=== PATIENT | female | born 2000 | race Caucasian/White ===

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

== ENCOUNTER 2020-02-28 21:10 | Emergency (ER) | payer SELFPAY ==
--- OUTSIDE RECORDS SUMMARY | 2020-02-28 21:13 | XMS REPORT | Continuity of Care Document ---
:2000 Author Organization [facility] t Address [address] [place] [address] Dr. Izaguirre [address] [place] [id number] Care Team Providers Name Role Phone Unavailable Unavailable Unavailable Problems This patient has no known problems. Allergies, Adverse Reactions, Alerts This patient has no known allergies or adverse reactions. Medications This patient has no known medications. Procedures This patient has no known procedures. Results This patient has no known results.
[2020-02-28] MEDS ORDERED: ACETAMINOPHEN 500 MG TAB ONE (21:44)
[2020-02-28 22:23] LABS: Absolute Lymphocytes (CBC) 1.8 K/uL (0.7-4.9); Basophils % 0.4 % (0-1.3); Hematocrit 38.3 % (36.0-45.0); Lymphocytes % 10.4 % (15.3-44.8); MPV 8.2 fL (7.6-11.3); RBC Red Blood Cell Count 4.67 M/uL (3.86-4.86)
[2020-02-28 22:36] LABS: Protime INR 1.27
[2020-02-28] MEDS ORDERED: NA CHLORIDE 0.9% 2,000 ML ONE (22:42)
[2020-02-28 22:49] LABS: ALT/SGPT 18 U/L (12-78); AST/SGOT 21 U/L (15-37); Albumin 2.6 g/dL (3.4-5.0); Alkaline Phosphatase 142 U/L (45-117); BUN Blood Urea Nitrogen 9 mg/dL (7-18); Bicarbonate 31 mmol/L (21-32); Bilirubin Direct 0.1 mg/dL (0-0.2); Bilirubin Total 0.4 mg/dL (0.2-1.0); Ferritin 146.9 ng/mL (8-388); Glucose Level 79 mg/dL (74-106); Lipase 44 U/L (73-393); Potassium 3.7 mmol/L (3.5-5.1); Protein, Total 8.7 g/dL (6.4-8.2); Sodium Level 134 mmol/L (136-145); Troponin (Emerg Dept Use Only) < 0.02 ng/mL (0.0-0.045)
[2020-02-28] MEDS ORDERED: dexAMETHasone 10 MG/ML VIAL ONE (23:12)
[2020-02-28] MEDS ORDERED: NA CHLORIDE 0.9% 250 ML ONE (23:12)
[2020-02-28] MEDS ORDERED: AZITHROMYCIN 500 MG INJ IVPB ONE (23:12)
--- NOTE | 2020-02-28 23:45 | EDPHYS ---
Physician Documentation [facility] Name: Taylor Rick Age: 19 yrs Sex: Female : 2000 Arrival Date: 02/28/2020 Time: 21:13 Bed 15 Private MD: ED Physician Dwight Dela Cruz HPI: 02/27 23:55 This 19 yrs old Female presents to ER via Ambulatory with complaints of tw4 Cough, Breathing Difficulty. 23:55 The patient or guardian reports cough. Onset: The symptoms/episode began/occurred tw4 today. Severity of symptoms: At their worst the symptoms were moderate, in the emergency department the symptoms are unchanged. Modifying factors: The symptoms are alleviated by nothing, the symptoms are aggravated by nothing. The patient has not experienced similar symptoms in the past. 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 - Social history:: Smoking status: . ROS: 23:55 Constitutional: Negative for fever, chills, and weight loss, Eyes: Negative for injury, tw4 pain, redness, and discharge, Cardiovascular: Negative for chest pain, palpitations, and edema, Abdomen/GI: Negative for abdominal pain, nausea, vomiting, diarrhea, and constipation, Back: Negative for injury and pain, MS/Extremity: Negative for injury and deformity, Skin: Negative for injury, rash, and discoloration, Neuro: Negative for headache, weakness, numbness, tingling, and seizure. 23:55 Respiratory: Positive for cough, shortness of breath, wheezing. Exam: 23:55 Constitutional: This is a well developed, well nourished patient who is awake, alert, tw4 and in no acute distress. Head/Face: Normocephalic, atraumatic. Chest/axilla: Normal chest wall appearance and motion. Nontender with no deformity. No lesions are appreciated. Cardiovascular: Regular rate and rhythm with a normal S1 and S2. No gallops, murmurs, or rubs. Normal PMI, no JVD. No pulse deficits. Respiratory: Lungs have equal breath sounds bilaterally, clear to auscultation and percussion. No rales, rhonchi or wheezes noted. No increased work of breathing, no retractions or nasal flaring. Abdomen/GI: Soft, non-tender, with normal bowel sounds. No distension or tympany. No guarding or rebound. No evidence of tenderness throughout. Back: No spinal tenderness. No costovertebral tenderness. Full range of motion. MS/ Extremity: Pulses equal, no cyanosis. Neurovascular intact. Full, normal range of motion. Neuro: Awake and alert, GCS 15, oriented to person, place, time, and situation. Cranial nerves II-XII grossly intact. Motor strength 5/5 in all extremities. Sensory grossly intact. Cerebellar exam normal. Normal gait. Vital Signs: 21:22 BP 113 / 89; Pulse 131; Resp 26; Temp 102.2; Pulse Ox 98% on R/A; Weight 52.16 kg; ls4 Height 5 ft. 7 in. (170.18 cm) (M); Pain 5/10; 22:30 BP 107 / 72; Pulse 131; Resp 24; Temp 101.8; Pulse Ox 98% on R/A; Pain 5/10; ls4 23:30 BP 100 / 74; Pulse 98; Resp 16; Temp 98.8; Pulse Ox 99% on R/A; Pain 3/10; ls4 02/28 00:00 BP 117 / 76; Pulse 105; Resp 18; Pulse Ox 100% ; vc 01:00 BP 112 / 74; Pulse 110; Resp 18; Pulse Ox 99% on R/A; vc 02/27 21:22 Body Mass Index 18.01 (52.16 kg, 170.18 cm) ls4 MDM: 02/27 21:33 Patient medically screened. tw4 23:57 Differential Diagnosis: Obstructed Airway Bronchitis Influenza. Data reviewed: vital tw4 signs, nurses notes. Data reviewed: lab test result(s), CBC, electrolytes, hepatic panel, radiologic studies, plain films. Data interpreted: Pulse oximetry: Interpretation:. Test interpretation: by ED physician or midlevel provider: plain radiologic studies. Counseling: I had a detailed discussion with the patient and/or guardian regarding: the historical points, exam findings, and any diagnostic results supporting the discharge/admit diagnosis, lab results, radiology results. Medication response: acetaminophen administration has normalized the patient's temperature. Response to treatment: the patient's symptoms have markedly improved after treatment, and as a result, I will discharge patient. Special discussion: I discussed with the patient/guardian in detail that at this point there is no indication for admission to the hospital. It is understood, however, that if the symptoms persist or worsen the patient needs to return immediately for re-evaluation. ED course: CXR reveals bilateral infiltrates suspicious for coronavirus pneumonia. Pt received antibiotics and steroids. Pt told to return to the ED if symptoms worsen. 02/27 21:32 Order name: Flu 02/27 21:32 Order name: Strep 02/27 22:03 Order name: Blood Culture Adult (2) 02/27 22:03 Order name: BMP 02/27 22:03 Order name: C-Reactive Protein 02/27 22:03 Order name: CBC with Diff; Complete Time: 22:57 02/27 22:03 Order name: COVID-19 02/27 22:03 Order name: Ferritin; Complete Time: 22:57 02/27 22:03 Order name: Flu 02/27 22:03 Order name: Lactate; Complete Time: 22:57 02/27 22:03 Order name: LFT's; Complete Time: 22:57 02/27 22:03 Order name: Lipase; Complete Time: 22:57 02/27 22:03 Order name: Procalcitonin; Complete Time: 22:57 02/27 21:32 Order name: Droplet/Contact Precautions; Complete Time: 22:18 02/27 21:32 Order name: CXR XRAY 02/27 22:03 Order name: PT-INR; Complete Time: 22:57 02/27 22:03 Order name: Ptt, Activated; Complete Time: 22:57 02/27 22:03 Order name: Troponin (emerg Dept Use Only); Complete Time: 22:57 02/27 22:03 Order name: EKG; Complete Time: 22:05 02/27 22:04 Order name: Blood Culture EDAL 02/27 22:04 Order name: Basic Metabolic Panel; Complete Time: 22:57 EDAL 02/27 22:04 Order name: C-Reactive Protein; Complete Time: 22:57 EDAL 02/27 21:32 Order name: [facility] [phone]/ tw 02/27 21:32 Order name: O2 Per Protocol; Complete Time: 22:18 tw4 02/27 22:03 Order name: EKG - Nurse/Tech; Complete Time: 22:33 tw4 02/27 22:03 Order name: IV Start; Complete Time: 22:18 tw4 02/27 22:03 Order name: Labs collected and sent; Complete Time: 22:18 tw4 02/27 22:03 Order name: [facility] [phone]/ ; Complete Time: 22:18 tw4 02/27 22:03 Order name: O2 Per Protocol; Complete Time: 22:18 tw4 02/27 22:03 Order name: O2 Sat Monitoring; Complete Time: 22:18 tw4 EC/16 01:10 Rate is 119 beats/min. Rhythm is regular, Sinus tachycardia. QRS Murray is Normal. MT tw4 interval is normal. QRS interval is normal. QT interval is normal. No Q waves. T waves are Normal. No ST changes noted. Clinical impression: Sinus tachycardia. Interpreted by me. Reviewed by me. Administered Medications: 02/27 21:45 Drug: Tylenol 1000 mg Route: PO; ls4 22:25 Follow up: Response: No adverse reaction; Pain is decreased ls4 22:32 Drug: NS 0.9% 1000 ml Route: IV; Rate: 1 bolus; Site: right antecubital; ls4 23:05 Drug: Decadron - Dexamethasone 10 mg Route: IVP; Site: right antecubital; ls4 02/28 00:00 Follow up: Response: No adverse reaction vc 02/27 23:05 Drug: AZITHromycin 500 mg Route: IVPB; Infused Over: 1 hrs; Site: right antecubital; ls4 Disposition: 02/28/20 23:45 Discharged to Home. Impression: Pneumonia, unspecified organism, Fever, unspecified. - Condition is Stable. - Discharge Instructions: Fever, Adult, Community-Acquired Pneumonia, Adult. - Prescriptions for Zithromax Z- Adolph 250 mg Oral Tablet - take 1 tablet by ORAL route as directed for 5 days Day 1 - take two (2) tablets one time. Day 2, 3, 4 , 5 take one (1) tablet once daily.; 6 tablet. Medrol (Adolph) 4 mg Oral Tablets, Dose Pack - take 1 tablet by ORAL route as directed - follow package instructions; 1 packet. - Medication Reconciliation Form, Thank You Letter, Antibiotic Education, Prescription Opioid Use form. - Follow up: Private Physician; When: Upon discharge from the Emergency Department; Reason: Recheck today's complaints, Continuance of care, Re-evaluation by your physician. - Problem is new. - Symptoms have improved. Signatures: Dispatcher [employer] EDDwight Walter MD MD 4 Vianney Turner RN RN ls4 Ada Churchill RN RN vc Corrections: (The following items were deleted from the chart) 22:19 21:32 Labs collected and sent ordered. 4 ls4 02/28 01:42 02/27 23:45 02/28/2020 23:45 Discharged to Home. Impression: Pneumonia, unspecified vc organism; Fever, unspecified. Condition is Stable. Forms are Medication Reconciliation Form, Thank You Letter, Antibiotic Education, Prescription Opioid Use. Follow up: Private Physician; When: Upon discharge from the Emergency Department; Reason: Recheck today's complaints, Continuance of care, Re-evaluation by your physician. Problem is new. Symptoms have improved. 4
--- NOTE | 2020-02-28 23:45 | ER ---
Nurse's Notes [facility] Name: Taylor Rick Age: 19 yrs Sex: Female : 2000 Arrival Date: 02/28/2020 Time: 21:13 Bed 15 Private MD: Diagnosis: Pneumonia, unspecified organism;Fever, unspecified Presentation: 02/27 21:22 Chief complaint: Patient states: coughing and sick for at least a month. started having ls4 fevers 3 days ago. I wake up in sweats. Coronavirus screen: Client denies travel out of the [place] in the last 14 days. Client presents with at least one sign or symptom that may indicate coronavirus-19. Standard/surgical mask placed on the client. Provider contacted for isolation considerations. Ebola Screen: No symptoms or risks identified at this time. 21:22 Initial Sepsis Screen: Does the patient meet any 2 criteria? RR > 20 per min. Temp ls4 <36.0*C (96.8*F)) or > 38.3*C (100.9*F). HR > 90 bpm. Yes Does the patient have a suspected source of infection? Yes: Productive cough/pneumonia Dysuria/Frequency/Urgency/UTI Skin breakdown/wound If YES to both, name of provider notified: Dwight Dela Cruz MD Risk Assessment: Do you want to hurt yourself or someone else? Patient reports no desire to harm self or others. Onset of symptoms is unknown. Care prior to arrival: None. Activity prior to arrival: None. 21:22 Acuity: GABRIELLA 2 ls4 22:01 Method Of Arrival: Ambulatory ls4 Triage Assessment: 21:20 General: Appears distressed, uncomfortable, ill, slender, unkempt, malnourished, ls4 Behavior is cooperative. 21:20 Pain: Complains of pain in right mid back Pain currently is 5 out of 10 on a pain ls4 scale. Quality of pain is described as aching, Pain began gradually, Is intermittent, episodic, Aggravated by coughing. Respiratory: Reports shortness of breath at rest on exertion since one month cough that is non-productive, dry, hacking, persistent since one month Airway is patent Respiratory effort is even, labored, Respiratory pattern is tachypnea Onset: The symptoms/episode began/occurred one month , the patient has severe shortness of breath. GI: Reports nausea. Derm: Skin is clammy, Skin is pale, Skin temperature is warm track rodriguez on antecubital veins Decubitus. Musculoskeletal: No deficits noted. No signs and/or symptoms reported regarding the musculoskeletal system. 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 - Social history:: Smoking status: . Screenin:20 Abuse screen: Denies threats or abuse. Denies injuries from another. ls4 21:20 Nutritional screening: No deficits noted. Tuberculosis screening: No symptoms or risk ls4 factors identified. Fall Risk None identified. Assessment: 22:27 Reassessment: No changes from previously documented assessment. Patient and/or family ls4 updated on plan of care and expected duration. Pain level reassessed. Patient is alert, oriented x 3, equal unlabored respirations, skin warm/dry/pink. Cardiovascular: Denies chest pain, Rhythm is sinus tachycardia Chest pain is denied. 02/28 00:10 Reassessment: Patient appears in no apparent distress at this time. Patient and/or vc family updated on plan of care and expected duration. Pain level reassessed. Assumed care from Vianney Turner RN. 00:10 General: Appears uncomfortable, ill, slender, Behavior is calm, cooperative, vc appropriate for age. Neuro: Level of Consciousness is obeys commands, lethargic, Oriented to person, place, time, situation, Appropriate for age. Respiratory: Reports cough that is productive, Airway is patent Respiratory effort is even, unlabored, Respiratory pattern is symmetrical, tachypnea. Respiratory: Reports shortness of breath. GI: No signs and/or symptoms were reported involving the gastrointestinal system. : No signs and/or symptoms were reported regarding the genitourinary system. Derm: No deficits noted. Musculoskeletal: No signs and/or symptoms reported regarding the musculoskeletal system. 00:10 Reassessment: Discharge pending fluids infusing. vc 01:00 Reassessment: Patient appears in no apparent distress at this time. Patient and/or vc family updated on plan of care and expected duration. Pain level reassessed. Patient is alert, oriented x 3, equal unlabored respirations, skin warm/dry/pink. Vital Signs: 02/27 21:22 BP 113 / 89; Pulse 131; Resp 26; Temp 102.2; Pulse Ox 98% on R/A; Weight 52.16 kg; ls4 Height 5 ft. 7 in. (170.18 cm) (M); Pain 5/10; 22:30 BP 107 / 72; Pulse 131; Resp 24; Temp 101.8; Pulse Ox 98% on R/A; Pain 5/10; ls4 23:30 BP 100 / 74; Pulse 98; Resp 16; Temp 98.8; Pulse Ox 99% on R/A; Pain 3/10; ls4 02/28 00:00 BP 117 / 76; Pulse 105; Resp 18; Pulse Ox 100% ; vc 01:00 BP 112 / 74; Pulse 110; Resp 18; Pulse Ox 99% on R/A; vc 02/27 21:22 Body Mass Index 18.01 (52.16 kg, 170.18 cm) ls4 ED Course: 02/27 21:13 Patient arrived in ED. cl3 21:19 Arm band placed on. ls4 21:19 EKG completed in triage. Results shown to MD. ls4 21:24 Vianney Turner, RN is Primary Nurse. ls4 21:33 Dwight Dela Cruz MD is Attending Physician. tw4 21:44 CXR XRAY In Process Unspecified. EDMS 21:45 No provider procedures requiring assistance completed. Inserted saline lock: 20 gauge ls4 in right antecubital area, using aseptic technique. Blood collected. 21:59 Initial lab(s) drawn, by me, sent to lab. First set of blood cultures drawn by me, ls4 Second set of blood cultures drawn by me, Urine collected: clean catch specimen, EKG done, by ED staff, reviewed by Dwight Dela Cruz MD. Patient maintains SpO2 saturation greater than 95% on room air. 22:05 Triage completed. ls4 22:18 Blood Culture Adult (2) Sent. ls4 22:18 BMP Sent. ls4 22:29 Patient has correct armband on for positive identification. Bed in low position. Call ls4 light in reach. Side rails up X 1. 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 Pulse ox on. NIBP on. Verbal reassurance given. 23:44 C-Reactive Protein Sent. ls4 02/28 01:30 IV discontinued, intact, bleeding controlled, No redness/swelling at site. Pressure vc dressing applied. Administered Medications: 02/27 21:45 Drug: Tylenol 1000 mg Route: PO; ls4 22:25 Follow up: Response: No adverse reaction; Pain is decreased ls4 22:32 Drug: NS 0.9% 1000 ml Route: IV; Rate: 1 bolus; Site: right antecubital; ls4 23:05 Drug: Decadron - Dexamethasone 10 mg Route: IVP; Site: right antecubital; ls4 02/28 00:00 Follow up: Response: No adverse reaction vc 02/27 23:05 Drug: AZITHromycin 500 mg Route: IVPB; Infused Over: 1 hrs; Site: right antecubital; ls4 Outcome: 23:45 Discharge ordered by . allie 02/28 01:30 Patient left the ED. vc 01:30 Discharged to home ambulatory. vc 01:30 Condition: stable 01:30 Discharge instructions given to patient, Instructed on discharge instructions, follow up and referral plans. medication usage, Demonstrated understanding of instructions, follow-up care, medications, Prescriptions given X 3. Signatures: Dispatcher [employer] Dwight Pillai MD MD 4 Vianney Turner RN RN 4 Sandy Jeronimo 3 Ada Churchill RN RN vc Corrections: (The following items were deleted from the chart) 04:23 02:00 Reassessment: Patient appears in no apparent distress at this time. Patient vc and/or family updated on plan of care and expected duration. Pain level reassessed. vc 04:25 01:42 Patient left the ED. vc vc
[2020-02-29] MEDS ORDERED: CLINDAMYCIN IV 150 MG/ML (4 mL) VIAL ONE (00:09)
[2020-02-29] MEDS ORDERED: HYDROCODONE/APAP 7.5/325 MG TAB ONE (00:09)
[2020-02-29 02:08] VITALS: BP 100/74; TEMP 98.8; O2SAT 99
--- NOTE | 2020-02-29 11:26 | RAD REPORT ---
EXAM DESCRIPTION: Aurelia Single View02/28/2020 9:44 pm CLINICAL HISTORY: Chest pain COMPARISON: October 2019 FINDINGS: 5 centimeter left upper lobe consolidation. Mild to moderate additional bilateral pulmonary opacities Heart is normal size IMPRESSION: Right left upper lobe consolidation probably pneumonia Additional mild to moderate bilateral patchy lung opacities probably pneumonia. This should be follow ed until it has cleared to help exclude a neoplastic process
--- NOTE | 2020-02-29 15:35 | EKG ---
Test Date: 2020-02-28 Test Time: 22:29:07 Manufacturing Coordinator: TLT MEASUREMENT RESULTS: Intervals: Rate: 0 CA: QRSD: 0 QT: 0 QTc: 0 [place]: P: CA: QRS: 0 T: 0 INTERPRETIVE STATEMENTS: No QRS complexes found, no ECG analysis possible Compared to ECG 03/22/2019 16:05:34 Sinus rhythm no longer present Electronically Signed On 02-29-20 15:34:27 CDT by Arnaud Lafleur
== END 2020-02-29 01:42 | disposition home or self-care (01) ==
LOC: ER 21:10
DX: J18.9 Pneumonia, unspecified organism (principal); J45.909 Unspecified asthma, uncomplicated; F31.9 Bipolar disorder, unspecified
CPT/HCPCS: 36415; 71045; 80048; 80076; 82728; 83605; 83690; 84145; 84484; 85025; 85610; 85730; 86140; 87040; 87081; 87804; 93005; 96374; 96375; 99285; J0456; J1100; J7030; J7050; U0002

== ENCOUNTER 2020-03-25 12:15 | Emergency (ER) | payer OTHER, SELFPAY ==
--- OUTSIDE RECORDS SUMMARY | 2020-03-25 12:37 | XMS REPORT | Continuity of Care Document ---
:2000 Author Organization [facility] t Address [address] [place] [address] Dr. Izaguirre [address] [place] [id number] Care Team Providers Name Role Phone Unavailable Unavailable Unavailable Problems This patient has no known problems. Allergies, Adverse Reactions, Alerts This patient has no known allergies or adverse reactions. Medications This patient has no known medications. Procedures This patient has no known procedures. Results This patient has no known results.
[2020-03-25] MEDS ORDERED: ALBUTEROL 2.5 MG/3 ML NEB SOL ONE ×2 (12:54→15:46)
[2020-03-25] MEDS ORDERED: IPRATROPIUM BROM 0.5MG/2.5ML ONE (12:54)
[2020-03-25 12:56] LABS: Absolute Lymphocytes (CBC) 1.4 K/uL (0.7-4.9); Basophils % 0.6 % (0-1.3); Hematocrit 36.5 % (36.0-45.0); MPV 8.1 fL (7.6-11.3); RBC Red Blood Cell Count 4.31 M/uL (3.86-4.86)
[2020-03-25 12:59] LABS: Protime INR 0.96
[2020-03-25] MEDS ORDERED: Magnesium Sulfate 2gm IVPB 2 G/50 ML BAG IV ONE (13:07)
[2020-03-25] MEDS ORDERED: METHYLPREDNISOLONE 125 MG INJ ONE (13:07)
[2020-03-25 13:16] LABS: ALT/SGPT 17 U/L (12-78); AST/SGOT 11 U/L (15-37); Albumin 3.4 g/dL (3.4-5.0); Alkaline Phosphatase 99 U/L (45-117); BUN Blood Urea Nitrogen 12 mg/dL (7-18); Bicarbonate 28 mmol/L (21-32); Bilirubin Direct 0.2 mg/dL (0-0.2); Bilirubin Total 0.6 mg/dL (0.2-1.0); Glucose Level 107 mg/dL (74-106); Magnesium 1.9 mg/dL (1.8-2.4); NT PRO-BNP 261 pg/mL (<125); Potassium 3.8 mmol/L (3.5-5.1); Protein, Total 7.9 g/dL (6.4-8.2); Sodium Level 140 mmol/L (136-145); Troponin (Emerg Dept Use Only) < 0.02 ng/mL (0.0-0.045)
[2020-03-25 13:37] LABS: Blood Morphology Comment NOT SEEN (NOT SEEN); Platelet Estimate ADEQ; White Blood Cell Scan OK (OK)
--- NOTE | 2020-03-25 15:40 | RAD REPORT ---
EXAM DESCRIPTION: RAD - Chest Single View - 03/25/2020 3:23 pm CLINICAL HISTORY: DYSPNEA COMPARISON: Single-view chest February 27 TECHNIQUE: AP portable chest image was obtained 03/25/2020 3:23 pm . FINDINGS: Diffusely prominent interstitial pattern is present. Remnant focal opacification is presen t in the left upper lobe. Little remaining infiltrate or postinflammatory change noted. No cavitation . No new infiltrate. Heart and vasculature are normal. No measurable pleural effusion and no pneumoth orax. No acute bony abnormality seen. No acute aortic findings suspected. IMPRESSION: Very little infiltrate remains from the left upper lobe pneumonia seen on the February 27 study. Patient has diffusely prominent interstitial markings not clearly different from comparison.
[2020-03-25] MEDS ORDERED: Ringers Lactate 1,000 ML IV ONE (15:46)
--- NOTE | 2020-03-25 16:57 | EDPHYS ---
Physician Documentation [facility] Name: Taylor Rick Age: 19 yrs Sex: Female : 2000 Arrival Date: 03/25/2020 Time: 12:17 Bed 28 Private MD: ED Physician Angel Beck HPI: 03/25 13:33 This 19 yrs old Female presents to ER via Ambulatory with complaints of jr8 Asthma Exacerbation. 13:33 The patient presents to the emergency department with wheezing, Current therapy: jr8 albuterol inhaler, albuterol nebs. Onset: The symptoms/episode began/occurred acutely, yesterday. Modifying factors: The symptoms are alleviated by nothing, the symptoms are aggravated by exertion. Associated signs and symptoms: Pertinent negatives: chest pain, fever. Severity of symptoms: At their worst the symptoms were moderate in the emergency department the symptoms are unchanged. The patient has experienced similar episodes in the past, a few times. The patient has not recently seen a physician. Stated that she was diagnosed with pneumonia last month. Did not take all her Abx. Has been seen by health department as well to r/o TB. Stated that COVID and TB has been negative so far. Started with Asthma exacerbation that is not being relieved by her meds. Is also out of some of them as well . 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 - Social history:: Smoking status: Patient/guardian denies using tobacco, Stopped _ months ago 5. ROS: 13:33 Eyes: Negative for injury, pain, redness, and discharge, ENT: Negative for injury, jr8 pain, and discharge, Neck: Negative for injury, pain, and swelling, Cardiovascular: Negative for chest pain, palpitations, and edema, Abdomen/GI: Negative for abdominal pain, nausea, vomiting, diarrhea, and constipation, Back: Negative for injury and pain, MS/Extremity: Negative for injury and deformity, Skin: Negative for injury, rash, and discoloration, Neuro: Negative for headache, weakness, numbness, tingling, and seizure. 13:33 Respiratory: Positive for cough, dyspnea on exertion, shortness of breath, wheezing. Exam: 13:33 Eyes: Pupils equal round and reactive to light, extra-ocular motions intact. Lids and jr8 lashes normal. Conjunctiva and sclera are non-icteric and not injected. Cornea within normal limits. Periorbital areas with no swelling, redness, or edema. ENT: Nares patent. No nasal discharge, no septal abnormalities noted. Tympanic membranes are normal and external auditory canals are clear. Oropharynx with no redness, swelling, or masses, exudates, or evidence of obstruction, uvula midline. Mucous membranes moist. Neck: Trachea midline, no thyromegaly or masses palpated, and no cervical lymphadenopathy. Supple, full range of motion without nuchal rigidity, or vertebral point tenderness. No Meningismus. Abdomen/GI: Soft, non-tender, with normal bowel sounds. No distension or tympany. No guarding or rebound. No evidence of tenderness throughout. Back: No spinal tenderness. No costovertebral tenderness. Full range of motion. Skin: Warm, moist with normal turgor. Normal color with no rashes, no lesions, and no evidence of cellulitis. MS/ Extremity: Pulses equal, no cyanosis. Neurovascular intact. Full, normal range of motion. Neuro: Awake and alert, GCS 15, oriented to person, place, time, and situation. Cranial nerves II-XII grossly intact. Motor strength 5/5 in all extremities. Sensory grossly intact. Cerebellar exam normal. Normal gait. 13:33 Cardiovascular: Rate: tachycardic, Rhythm: regular, Pulses: Pulses are 2+ in right radial artery and left radial artery. Heart sounds: normal, normal S1and S2, no S3 or S4, no murmur, no rub, no gallop, Edema: is not appreciated, JVD: is not appreciated. 13:33 Respiratory: mild respiratory distress is noted, Respirations: tachypnea, Breath sounds: wheezing: expiratory that is moderate, is heard diffusely. Vital Signs: 12:30 BP 117 / 79; Pulse 138; Resp 26; Temp 97.8(TE); Pulse Ox 95% on R/A; Weight 54.43 kg ca1 (R); Height 5 ft. 7 in. (170.18 cm) (R); 16:36 BP 107 / 65; Pulse 91; Resp 20; Temp 98.0(O); Pulse Ox 100% ; Pain 0/10; ls4 17:20 BP 111 / 60; Pulse 88; Resp 19; Pulse Ox 99% on R/A; Pain 0/10; ls4 12:30 Body Mass Index 18.79 (54.43 kg, 170.18 cm) ca1 MDM: 12:25 Patient medically screened. jr8 15:27 Data reviewed: vital signs, nurses notes, lab test result(s), EKG, radiologic studies, jr8 plain films. Data interpreted: Pulse oximetry: on room air is 95 %. Interpretation: acceptable. Counseling: I had a detailed discussion with the patient and/or guardian regarding: the historical points, exam findings, and any diagnostic results supporting the discharge/admit diagnosis, lab results, radiology results. ED course: Patient doing better but still needs more nebulizer treatments. 16:54 ED course: Much has improved greatly. VS stable at this time. No increased work of 8 breathing. Will d/c home on meds . 03/25 12:30 Order name: Basic Metabolic Panel 03/25 12:30 Order name: CBC with Diff; Complete Time: 13:39 03/25 12:30 Order name: LFT's; Complete Time: 13:16 03/25 12:30 Order name: Magnesium; Complete Time: 13:16 03/25 12:30 Order name: NT PRO-BNP; Complete Time: 13:16 03/25 12:30 Order name: PT-INR; Complete Time: 13:16 03/25 12:30 Order name: Troponin (emerg Dept Use Only); Complete Time: 13:16 03/25 12:30 Order name: XRAY Chest (1 view); Complete Time: 15:43 [facility] 03/25 12:30 Order name: Blood Culture Adult (2) [facility] 03/25 12:30 Order name: Procalcitonin; Complete Time: 13:35 [facility] 03/25 12:30 Order name: Lactate; Complete Time: 13:16 03/25 12:31 Order name: Basic Metabolic Panel; Complete Time: 13:16 EDMS 03/25 12:58 Order name: CBC Smear Scan; Complete Time: 13:39 EDNV 03/25 12:30 Order name: EKG; Complete Time: 12:31 8 03/25 12:30 Order name: Cardiac monitoring; Complete Time: 13:13 8 03/25 12:30 Order name: EKG - Nurse/Tech; Complete Time: 13:13 8 03/25 12:30 Order name: IV Saline Lock; Complete Time: 13:8 03/25 12:30 Order name: Labs collected and sent; Complete Time: 13: 8 03/25 12:30 Order name: O2 Per Protocol; Complete Time: 13: 8 03/25 12:30 Order name: O2 Sat Monitoring; Complete Time: 13: Administered Medications: 13:02 Drug: Albuterol - atroVENT (3:1) (2.5 mg - 0.5 mg) 3 ml Route: Nebulizer; iw 13:02 Drug: SOLU-Medrol 125 mg Route: IVP; Site: left antecubital; iw 13:03 Drug: Magnesium Sulfate 2 grams Route: IVPB; Infused Over: 2 hrs; Site: left iw antecubital; 15:30 Drug: Ringers - Lactated Ringers Solution 1000 ml Route: IV; Rate: bolus; Site: right ls4 antecubital; 16:30 Follow up: IV Status: Completed infusion ls4 15:30 Drug: Albuterol 2.5 mg Route: Inhalation; ls4 15:50 Drug: Albuterol 2.5 mg Route: Inhalation; ls4 16:10 Drug: Albuterol 2.5 mg Route: Inhalation; ls4 17:20 Follow up: Response: No adverse reaction; Marked relief of symptoms ls4 Disposition: 17:52 Co-signature as Attending Physician, Angel Beck MD. rn Disposition: 03/25/20 16:56 Discharged to Home. Impression: Moderate persistent asthma with (acute) exacerbation, Pneumonia due to other specified bacteria. - Condition is Stable. - Discharge Instructions: Asthma, Adult, Community-Acquired Pneumonia, Adult. - Prescriptions for Prednisone 20 mg Oral Tablet - take 3 tablet by ORAL route once daily for 5 days; 15 tablet. Albuterol Sulfate 2.5 mg /3 mL (0.083 %) Inhalation Solution for Nebulization - inhale 1 unit by NEBULIZATION route every 8 hours As needed; 1 box. Flovent HFA 110 mcg/actuation Inhalation Aerosol - inhale 2 puffs by INHALATION route 2 times per day; 1 Cartridge. Albuterol Sulfate 90 mcg/actuation - inhale 1-2 puff by INHALATION route every 4-6 hours; 1 Inhaler. Zithromax Z- Adolph 250 mg Oral Tablet - take 1 tablet by ORAL route as directed for 5 days Day 1 - take two (2) tablets one time. Day 2, 3, 4 , 5 take one (1) tablet once daily.; 6 tablet. - Medication Reconciliation Form, Thank You Letter, Antibiotic Education, Prescription Opioid Use form. - Follow up: Private Physician; When: 2 - 3 days; Reason: Recheck today's complaints, Continuance of care, Re-evaluation by your physician. - Problem is new. - Symptoms have improved. Signatures: Dispatcher [employer] EDMS Susannah Tilley RN RN iw Nieto, Roman, MD MD rn Roszak, Josh, PA PA jr8 Vianney Turner RN RN ls4 AcGriselda clarke RN RN ca1 Corrections: (The following items were deleted from the chart) 16:57 16:56 03/25/2020 16:56 Discharged to Home. Impression: Moderate persistent asthma with jr8 (acute) exacerbation. Condition is Stable. Forms are Medication Reconciliation Form, Thank You Letter, Antibiotic Education, Prescription Opioid Use. Follow up: Private Physician; When: 2 - 3 days; Reason: Recheck today's complaints, Continuance of care, Re-evaluation by your physician. Problem is new. Symptoms have improved. jr8 17:21 16:57 03/25/2020 16:56 Discharged to Home. Impression: Moderate persistent asthma with ls4 (acute) exacerbation; Pneumonia due to other specified bacteria. Condition is Stable. Discharge Instructions: Asthma, Adult. Prescriptions for Prednisone 20 mg Oral Tablet - take 3 tablet by ORAL route once daily for 5 days; 15 tablet, Albuterol Sulfate 2.5 mg /3 mL (0.083 %) Inhalation Solution for Nebulization - inhale 1 unit by NEBULIZATION route every 8 hours As needed; 1 box, Flovent HFA 110 mcg/actuation Inhalation Aerosol - inhale 2 puffs by INHALATION route 2 times per day; 1 Cartridge, Albuterol Sulfate 90 mcg/actuation - inhale 1-2 puff by INHALATION route every 4-6 hours; 1 Inhaler, Zithromax Z-Adolph 250 mg Oral Tablet - take 1 tablet by ORAL route as directed for 5 days Day 1 - take two (2) tablets one time. Day 2, 3, 4 , 5 take one (1) tablet once daily.; 6 tablet. and Forms are Medication Reconciliation Form, Thank You Letter, Antibiotic Education, Prescription Opioid Use. Follow up: Private Physician; When: 2 - 3 days; Reason: Recheck today's complaints, Continuance of care, Re-evaluation by your physician. Problem is new. Symptoms have improved. jr8
--- NOTE | 2020-03-25 16:57 | ER ---
Nurse's Notes [facility] Name: Taylor Rick Age: 19 yrs Sex: Female : 2000 Arrival Date: 03/25/2020 Time: 12:17 Bed 28 Private MD: Diagnosis: Moderate persistent asthma with (acute) exacerbation;Pneumonia due to other specified bacteria Presentation: 03/25 12:22 Method Of Arrival: Ambulatory ca1 12:22 Acuity: GABRIELLA 2 ca1 12:30 Chief complaint: Patient states: SOB and wheezing since last night. Hx of Asthma all ca1 her life, ran out of breathing treatment and inhaler. Reports suspected of having TB but so far all results came back negative. Health Department number to call re pt [phone]. Pt on Tripod position on triage. Breath sound wheezing all over. RR tachypneic. Denies cough, denies fever. Coronavirus screen: shortness of breath, The client reports previous COVID testing was negative. Date of collection: February 28, 2020. Ebola Screen: Patient negative for fever greater than or equal to 101.5 degrees Fahrenheit, and additional compatible Ebola Virus Disease symptoms Patient denies exposure to infectious person. Patient denies travel to an Ebola-affected area in the 21 days before illness onset. No symptoms or risks identified at this time. Initial Sepsis Screen: Does the patient meet any 2 criteria? RR > 20 per min. HR > 90 bpm. Yes Does the patient have a suspected source of infection? Yes: Productive cough/pneumonia. Risk Assessment: Do you want to hurt yourself or someone else? Patient reports no desire to harm self or others. Onset of symptoms was March 25, 2020. 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 - Social history:: Smoking status: Patient/guardian denies using tobacco, Stopped _ months ago 5. Screenin:57 Abuse screen: Denies threats or abuse. Denies injuries from another. Nutritional ls4 screening: No deficits noted. Tuberculosis screening: No symptoms or risk factors identified. Fall Risk None identified. Assessment: 12:22 General: Appears distressed, uncomfortable, slender, Behavior is calm, cooperative. ls4 Neuro: No deficits noted. Cardiovascular: Heart tones S1 S2 Capillary refill < 3 seconds Clubbing of nail beds is absent Rhythm is sinus tachycardia Chest pain is denied. Respiratory: Airway is patent Respiratory effort is labored, Respiratory pattern is tachypnea. GI: No deficits noted. No signs and/or symptoms were reported involving the gastrointestinal system. : No deficits noted. No signs and/or symptoms were reported regarding the genitourinary system. Derm: No deficits noted. No signs and/or symptoms reported regarding the dermatologic system. Musculoskeletal: No deficits noted. No signs and/or symptoms reported regarding the musculoskeletal system. Circulation, motion, and sensation intact. Capillary refill < 3 seconds, Range of motion:. 17:20 Reassessment: Patient appears in no apparent distress at this time. Patient is alert, ls4 oriented x 3, equal unlabored respirations, skin warm/dry/pink. Patient states feeling better. Patient states symptoms have improved. Pain: Denies pain. Vital Signs: 12:30 BP 117 / 79; Pulse 138; Resp 26; Temp 97.8(TE); Pulse Ox 95% on R/A; Weight 54.43 kg ca1 (R); Height 5 ft. 7 in. (170.18 cm) (R); 16:36 BP 107 / 65; Pulse 91; Resp 20; Temp 98.0(O); Pulse Ox 100% ; Pain 0/10; ls4 17:20 BP 111 / 60; Pulse 88; Resp 19; Pulse Ox 99% on R/A; Pain 0/10; ls4 12:30 Body Mass Index 18.79 (54.43 kg, 170.18 cm) ca1 ED Course: 12:17 Patient arrived in ED. ag5 12:22 Triage completed. ca1 12:25 Artur Vallejo PA is PHCP. jr8 12:25 Angel Beck MD is Attending Physician. jr8 12:32 Oxygen administration via nasal cannula \T\ 3L/min. ls4 12:35 Arm band placed on right wrist. ca1 12:53 Vianney Turner, RN is Primary Nurse. ls4 12:57 Patient has correct armband on for positive identification. Bed in low position. Call ls4 light in reach. Side rails up X 1. 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 Pulse ox on. NIBP on. Verbal reassurance given. Diet: Patient is NPO. 12:57 No provider procedures requiring assistance completed. ls4 13:00 Inserted saline lock: 20 gauge in left antecubital area, using aseptic technique. iw 13:14 Basic Metabolic Panel Sent. ls4 14:29 XRAY Chest (1 view) Sent. ls4 15:23 XRAY Chest (1 view) In Process Unspecified. EDMS 16:37 No apparent distress. Appears to be sleeping. ls4 Administered Medications: 13:02 Drug: Albuterol - atroVENT (3:1) (2.5 mg - 0.5 mg) 3 ml Route: Nebulizer; iw 13:02 Drug: SOLU-Medrol 125 mg Route: IVP; Site: left antecubital; iw 13:03 Drug: Magnesium Sulfate 2 grams Route: IVPB; Infused Over: 2 hrs; Site: left iw antecubital; 15:30 Drug: Ringers - Lactated Ringers Solution 1000 ml Route: IV; Rate: bolus; Site: right ls4 antecubital; 16:30 Follow up: IV Status: Completed infusion ls4 15:30 Drug: Albuterol 2.5 mg Route: Inhalation; ls4 15:50 Drug: Albuterol 2.5 mg Route: Inhalation; ls4 16:10 Drug: Albuterol 2.5 mg Route: Inhalation; ls4 17:20 Follow up: Response: No adverse reaction; Marked relief of symptoms ls4 Outcome: 16:56 Discharge ordered by MD. russo 17:21 Patient left the ED. ls4 Signatures: Dispatcher [employer] EDMS Susannah Tilley RN RN iw Artur Vallejo PA PA jr8 Vianney Turner RN RN ls4 Griselda Musa RN RN [facility] Yumiko Fregoso ag5 Corrections: (The following items were deleted from the chart) 14:32 12:58 Pain: Pain ls4 ls4
[2020-03-25 19:04] VITALS: BP 111/60; O2SAT 99
[2020-03-25 19:06] VITALS: TEMP 98
== END 2020-03-25 17:21 | disposition home or self-care (01) ==
LOC: ER 12:15
DX: J45.41 Moderate persistent asthma with (acute) exacerbation (principal); J15.8 Pneumonia due to other specified bacteria
CPT/HCPCS: 96365; 93005; 87040 ×2; 85025; 80048; 36415; 83735; 85610; 80076; 83605; 84484; 84145; 83880; 71045; 96375; 99285; J3475; J7120; J2930

== ENCOUNTER 2020-07-19 02:41 | Inpatient (IN) | payer SELFPAY ==
--- OUTSIDE RECORDS SUMMARY | 2020-07-19 02:43 | XMS REPORT | Continuity of Care Document ---
:2000 Author Organization [facility] t Address [address] [place] [address] Dr. Izaguirre [address] [place] [id number] Care Team Providers Name Role Phone Unavailable Unavailable Unavailable Problems This patient has no known problems. Allergies, Adverse Reactions, Alerts This patient has no known allergies or adverse reactions. Medications This patient has no known medications. Procedures This patient has no known procedures. Results This patient has no known results.
[2020-07-19] MEDS ORDERED: METHYLPREDNISOLONE 125 MG INJ ONE ×2 (03:42→10:53)
[2020-07-19 03:57] LABS: Basophils % 0.8 % (0-1.3); Hematocrit 41.5 % (36.0-45.0); Lymphocytes % 14.8 % (15.3-44.8); MPV 8.1 fL (7.6-11.3); RBC Red Blood Cell Count 5.12 M/uL (3.86-4.86)
[2020-07-19 03:59] LABS: Protime INR 0.98
[2020-07-19 04:04] LABS: SARS-COV-2 RT PCR NEGATIVE (NEGATIVE)
[2020-07-19 04:11] LABS: ALT/SGPT 15 U/L (12-78); AST/SGOT 15 U/L (15-37); Albumin 3.5 g/dL (3.4-5.0); Alkaline Phosphatase 120 U/L (45-117); BUN Blood Urea Nitrogen 10 mg/dL (7-18); Bicarbonate 32 mmol/L (21-32); Bilirubin Direct 0.1 mg/dL (0-0.2); Bilirubin Total 0.7 mg/dL (0.2-1.0); CKMB Creatine Kinase MB < 1.0 ng/mL (0.3-3.6); Creatine Phosphokinase 72 U/L (26-192); Glucose Level 122 mg/dL (74-106); Lipase 47 U/L (73-393); Magnesium 1.8 mg/dL (1.8-2.4); NT PRO-BNP 333 pg/mL (<125); Potassium 3.9 mmol/L (3.5-5.1); Protein, Total 8.7 g/dL (6.4-8.2); Sodium Level 137 mmol/L (136-145); Troponin (Emerg Dept Use Only) < 0.02 ng/mL (0.0-0.045)
[2020-07-19 04:29] LABS: Blood Morphology Comment NOT SEEN (NOT SEEN); Platelet Estimate ADEQ
[2020-07-19] MEDS ORDERED: IPRATROPIUM BROM 0.5MG/2.5ML ONE ×2 (04:48→14:10)
[2020-07-19] MEDS ORDERED: ALBUTEROL 2.5 MG/3 ML NEB SOL ONE ×3 (04:48→14:10)
[2020-07-19] MEDS ORDERED: NA CHLORIDE 0.9% 1,000 ML ONE ×2 (05:46→10:53)
[2020-07-19 06:10] LABS: Barbiturates NEGATIVE (NEGATIVE); Benzodiazepines NEGATIVE (NEGATIVE); Cocaine NEGATIVE (NEGATIVE); METHAMPHETAM POSITIVE (NEGATIVE); Methadone NEGATIVE (NEGATIVE); Opiates POSITIVE (NEGATIVE); Phencyclidine NEGATIVE (NEGATIVE); THC Cannibis NEGATIVE (NEGATIVE)
[2020-07-19 06:11] LABS: Urine Blood NEGATIVE (NEG); Urine Glucose NEGATIVE (NEG); Urine Protein NEGATIVE (NEG); Urine Specific Gravity 1.015 (1.005-1.030)
--- NOTE | 2020-07-19 06:22 | ER ---
Nurse's Notes [facility] Name: Taylor Rick Age: 20 yrs Sex: Female : 2000 Arrival Date: 07/19/2020 Time: 02:43 Bed 27 Private MD: Diagnosis: Moderate persistent asthma with (acute) exacerbation;Hypoxemia Presentation: 07/19 03:02 Chief complaint: Patient states: i have shortness of breath and cough for 2 days. i had mg2 multiple history of pneumonia before. Coronavirus screen: Client denies travel out of the [place] in the last 14 days. Client presents with at least one sign or symptom that may indicate coronavirus-19. Standard/surgical mask placed on the client. Provider contacted for isolation considerations. Ebola Screen: No symptoms or risks identified at this time. Risk Assessment: Do you want to hurt yourself or someone else? Patient reports no desire to harm self or others. Onset of symptoms was July 17, 2020. 03:02 Method Of Arrival: Wheelchair mg2 03:02 Acuity: GABRIELLA 2 mg2 03:02 Initial Sepsis Screen: Does the patient meet any 2 criteria? RR > 20 per min. HR > 90 mg2 bpm. Yes Does the patient have a suspected source of infection? Yes: Productive cough/pneumonia. Triage Assessment: 03:05 General: Appears uncomfortable, Behavior is cooperative. Pain: Denies pain. EENT: No mg2 signs and/or symptoms were reported regarding the EENT system. Neuro: Level of Consciousness is awake, alert, obeys commands, Oriented to person, place, time, situation. Cardiovascular: Capillary refill < 3 seconds Patient's skin is warm and dry. Respiratory: Reports shortness of breath at rest cough that is productive, Onset: The symptoms/episode began/occurred yesterday, the patient has moderate shortness of breath. GI: No signs and/or symptoms were reported involving the gastrointestinal system. : No signs and/or symptoms were reported regarding the genitourinary system. Derm: has psoriasis in the body, arms and face. Musculoskeletal: Circulation, motion, and sensation intact. Capillary refill < 3 seconds. 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 - Social history:: Smoking status: Patient denies any tobacco usage or history of. Patient uses street drugs, heroin, Patient/guardian denies using alcohol. Screenin:06 Abuse screen: Denies threats or abuse. Denies injuries from another. Nutritional mg2 screening: No deficits noted. Tuberculosis screening: No symptoms or risk factors identified. Fall Risk None identified. Assessment: 03:06 General: see triage note. mg2 03:06 Respiratory: Airway is patent Respiratory effort is even, pursed lip, Respiratory rr5 pattern is regular, symmetrical, tachypnea 03:06 Cardiovascular: Capillary refill < 3 seconds Patient's skin is warm and dry. Rhythm is rr5 sinus tachycardia. 04:20 Reassessment: Patient appears in no apparent distress at this time. awaiting for rr5 results. 05:00 Reassessment: Patient appears in no apparent distress at this time. Patient is alert, rr5 oriented x 3, equal unlabored respirations, skin warm/dry/pink. "I feel fine now after the steroid" as stated Patient states feeling better. Patient states symptoms have improved. 05:20 Reassessment: oxygen saturation drops to 88% on roomair. hooked back to oxygen support. rr5 05:59 Reassessment: Patient appears in no apparent distress at this time. Patient is alert, rr5 oriented x 3, equal unlabored respirations, skin warm/dry/pink. resting eyes closed breathing spontaneously with oxygen support Patient states feeling better. Patient states symptoms have improved. 06:30 Reassessment: Patient appears in no apparent distress at this time. tried to wean from rr5 oxygen *\\T\\-88% reading on room air, ED provider aware, planned for admission. 06:55 Reassessment: [id number] vicki chan. rr5 Vital Signs: 03:02 BP 141 / 94; Pulse 124; Resp 26; Temp 97.8(O); Pulse Ox 90% on R/A; Weight 54.43 kg; mg2 Height 5 ft. 7 in. (170.18 cm); 04:40 BP 131 / 70; Pulse 110; Resp 20; Pulse Ox 98% on 3 lpm NC; rr5 05:30 BP 163 / 90; Pulse 125; Resp 23; Pulse Ox 88% on R/A; mg2 06:56 BP 111 / 74; Pulse 110; Resp 15; Pulse Ox 94% on 3 lpm NC; rr5 03:02 Body Mass Index 18.79 (54.43 kg, 170.18 cm) mg2 ED Course: 02:43 Patient arrived in ED. ag3 02:56 Dwight Dela Cruz MD is Attending Physician. tw4 03:01 Armin Anderson RN is Primary Nurse. rr5 03:04 Arm band placed on. mg2 03:06 No provider procedures requiring assistance completed. mg2 03:08 Triage completed. mg2 03:10 Patient has correct armband on for positive identification. Bed in low position. Call rr5 light in reach. 03:11 CXR XRAY In Process Unspecified. EDMS 03:35 Inserted saline lock: 20 gauge in right antecubital area, using aseptic technique. rr5 Blood collected. 03:35 First set of blood cultures drawn by me. rr5 03:35 X-ray(s) taken. rr5 05:56 Urine collected: clean catch specimen, clear. rr5 06:20 Blayne Judd is Hospitalizing Provider. tw4 06:55 Patient admitted, IV remains in place. intact, No redness/swelling at site. rr5 07:46 Report given to SATISH Garrett. jl7 Administered Medications: 04:38 Drug: DuoNeb (3:1) (2.5 mg - 0.5 mg) 3 ml Route: Nebulizer; rr5 05:35 Follow up: Response: No adverse reaction mg2 05:35 Drug: NS 0.9% 1000 ml Route: IV; Rate: 1000 ml; Site: right antecubital; mg2 06:40 Follow up: Response: No adverse reaction; IV Status: Completed infusion; IV Intake: rr5 1000ml 05:37 Drug: Albuterol 1.25 mg Route: Inhalation; mg2 Intake: 06:40 IV: 1000ml; Total: 1000ml. rr5 Outcome: 06:21 Decision to Hospitalize by Provider. tw4 06:55 Admitted to ER Hold. Please see [facility] for further documentation. rr5 06:55 Condition: stable 06:55 Instructed on the need for admit. 16:09 Patient left the ED. aa5 Signatures: Dispatcher [employer] EDMS Evon Bro, RN RN aa5 Mehnaz Hodgson RN RN jl7 Dwight Dela Cruz MD MD tw4 Chacorta Johnson RN RN mg2 Ariana Vaughn ag3 Armin Anderson RN RN rr5 Corrections: (The following items were deleted from the chart) 03:08 03:02 BP 141 / 94; Resp 26bpm; Temp 97.8F Oral; 54.43 kg; Height 5 ft. 7 in.; BMI: mg2 18.7; mg2
--- NOTE | 2020-07-19 08:39 | RAD REPORT ---
EXAM DESCRIPTION: RAD - Chest Single View - 07/19/2020 3:11 am CLINICAL HISTORY: SOB Chest pain. COMPARISON: Chest Single View dated 03/25/2020; Chest Single View dated 02/28/2020; Chest Single View dated 10/15/2019; CHEST PA AND LAT 2 VIEW dated 08/07/2012 FINDINGS: Portable technique limits examination quality. Small opacity is present in the left upper lobe laterally at the site of previously noted pneumonia. This may represent an area of scarring or a new area of infiltrate developing. The heart is normal in size. Follow-up CT chest would be recommended for further evaluation, which can be performed on a no nemergent basis.
[2020-07-19] MEDS ORDERED: METHYLPREDNISOLONE 125 MG INJ IV ONE (08:54)
[2020-07-19] MEDS: IPRATROPIUM BROM 0.5MG/2.5ML NEB SCH ×2 (08:54→14:01)
[2020-07-19] MEDS ORDERED: ACETAMINOPHEN 500 MG TAB PO PRN (08:54)
[2020-07-19] MEDS ORDERED: MAGNESIUM SULFATE 1 gm IVPB 1 GM/100 ML BAG IV ONE ×2 (08:54→10:53)
[2020-07-19] MEDS: ALBUTEROL 2.5 MG/3 ML NEB SOL NEB SCH ×2 (08:54→14:01)
[2020-07-19] MEDS ORDERED: NA CHLORIDE 0.9% 1,000 ML IV SCH (08:54)
[2020-07-19] MEDS ORDERED: ENOXAPARIN 40 MG/0.4 ML SQ SCH (09:00)
--- NOTE | 2020-07-19 10:28 | EKG ---
Test Date: 2020-07-19 Test Time: 04:39:47 Shear Operator Helper: MG MEASUREMENT RESULTS: Intervals: Rate: 110 DC: 132 QRSD: 86 QT: 344 QTc: 465 Armstrong: P: 77 DC: 132 QRS: 94 T: 51 INTERPRETIVE STATEMENTS: Sinus tachycardia Right atrial enlargement Rightward axis Borderline ECG Compared to ECG 03/25/2020 13:08:46 Atrial abnormality now present Right-axis deviation now present Sinus rhythm no longer present Electronically Signed On 07-19-20 10:27:41 JAVA INTEGRATION DEVELOPER by Arnaud Lafleur
[2020-07-19] MEDS ORDERED: ENOXAPARIN 40 MG/0.4 ML SQ ONE (10:53)
[2020-07-19 11:48] VITALS: BP 121/67; TEMP 98.1
[2020-07-19 12:10] VITALS: BMI 18.8
[2020-07-19] MEDS ORDERED: INFLUENZA VACCINE (for 3y+) 0.5 ML DOSE IMVAC ONE (13:00)
--- NOTE | 2020-07-19 13:32 | P.HP ---
Certification for Inpatient Patient admitted to: Inpatient With expected LOS: >2 Midnights Practitioner: I am a practitioner with admitting privileges, knowledge of patient current condition, hospital course, and medical plan of care. Services: Services provided to patient in accordance with Admission requirements found in Title 42 Section 412.3 of the Code of Federal Regulations Patient History Date of Service: 07/19/20 Reason for admission: Shortness of breath History of Present Illness: 20-year-old woman with a history of asthma and bipolar disorder presented to the emergency department with a complaint of progressive shortness of breath and wheezing. Chest x-ray done in the emergency department was clear with no acute infiltrate. Patient was given nebulizer treatment with partially improvement. She was requiring oxygen to maintain oxygen saturation above 90%. She has mild leukocytosis and urine toxicology screen is positive for amphetamine and opiate. Patient is admitted for further management of acute asthma exacerbation with hypoxia. Allergies No Known Allergies Allergy (Unverified 08/07/12 13:35) Home Medications: Albuterol Inhaler [Ventolin Inhaler*] 2 puff IH QID PRN #1 hfa.[email or web address].[email or web address] 10/16/19 - Past Medical/Surgical History Diabetic: No -: Anxiety -: Depression -: Bipolar disorder -: Asthma -: tobacco abuse -: drug abuse - Social History Smoking Status: Former smoker Alcohol use: Yes CD- Drugs: Yes Caffeine use: Yes Place of Residence: Home Review of Systems Other: Except as documented, all other systems reviewed and negative. Physical Examination - Vital Signs Temperature: 98.1 F Blood Pressure: 121/67 Pulse: 107 Respirations: 12 Pulse Ox (%): 93 - Physical Exam General: In no apparent distress, Oriented x3, Other (Drowsy) HEENT: Mucous membr. moist/pink Neck: Supple, JVD not distended, No Thyromegaly Respiratory: Normal air movement, Expiratory wheezes (Bilateral), Inspiratory wheezes (Bilateral), Other (Upper airway transmitted sounds) Cardiovascular: No edema, Normal S1 S2 (Tachycardia) Gastrointestinal: Normal bowel sounds, Soft and benign, Non-distended, No tenderness Musculoskeletal: No swelling, No tenderness Integumentary: No rashes, No erythema Neurological: Normal speech, Normal strength at 5/5 x4 extr - Studies Laboratory Data (last 24 hrs) 07/19/20 03:35: PT 11.6, INR 0.98, APTT 31.7 07/19/20 03:35: WBC 13.2 H, Hgb 13.4, Hct 41.5, Plt Count 491 H 07/19/20 03:35: Sodium 137, Potassium 3.9, BUN 10, Creatinine 0.59, Glucose 122 H, Magnesium 1.8, Total Bilirubin 0.7, AST 15, ALT 15, Alkaline Phosphatase 120 H, Lipase 47 L Microbiology Data (last 24 hrs): 07/19/20 03:10 Throat Group A Streptococcus Rapid Screen - Final Assessment and Plan - Problems (Diagnosis) (1) Asthma exacerbation Status: Acute (2) Bipolar disorder Status: Acute (3) Polysubstance abuse Status: Acute - Plan Admit to the medical floor. Will treat asthma exacerbation with IV steroids, scheduled to nebulizer treatments. Will give her a dose of IV magnesium. Supplemental oxygen and titrate. Monitor for agitation and signs of withdrawal. - Advance Directives Does patient have a Living Will: No Does patient have a Durable POA for Healthcare: No
[2020-07-19 15:08] VITALS: O2SAT 97
--- NOTE | 2020-07-19 16:11 | EDPHYS ---
Physician Documentation [facility] Name: Taylor Rick Age: 20 yrs Sex: Female : 2000 Arrival Date: 07/19/2020 Time: 02:43 Bed 27 Private MD: ED Physician Dwight Dela Cruz HPI: 07/19 06:13 This 20 yrs old Female presents to ER via Wheelchair with complaints of tw4 Breathing Difficulty. 06:13 The patient has shortness of breath at rest. Onset: The symptoms/episode began/occurred tw4 today. Duration: The symptoms are continuous, and are unchanged since they started. The patient's shortness of breath has no apparent modifying factors. Associated signs and symptoms: The patient has no apparent associated signs or symptoms. Severity of symptoms: At their worst the symptoms were moderate in the emergency department the symptoms are unchanged. The patient has not experienced similar symptoms in the past. 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 - Social history:: Smoking status: Patient denies any tobacco usage or history of. Patient uses street drugs, heroin, Patient/guardian denies using alcohol. ROS: 06:13 Constitutional: Negative for fever, chills, and weight loss, Eyes: Negative for injury, tw4 pain, redness, and discharge, Cardiovascular: Negative for chest pain, palpitations, and edema, Abdomen/GI: Negative for abdominal pain, nausea, vomiting, diarrhea, and constipation, Back: Negative for injury and pain, MS/Extremity: Negative for injury and deformity, Skin: Negative for injury, rash, and discoloration, Neuro: Negative for headache, weakness, numbness, tingling, and seizure. 06:13 Respiratory: Positive for shortness of breath. Exam: 06:13 Constitutional: This is a well developed, well nourished patient who is awake, alert, tw4 and in no acute distress. Head/Face: Normocephalic, atraumatic. Chest/axilla: Normal chest wall appearance and motion. Nontender with no deformity. No lesions are appreciated. Cardiovascular: Regular rate and rhythm with a normal S1 and S2. No gallops, murmurs, or rubs. Normal PMI, no JVD. No pulse deficits. Abdomen/GI: Soft, non-tender, with normal bowel sounds. No distension or tympany. No guarding or rebound. No evidence of tenderness throughout. Back: No spinal tenderness. No costovertebral tenderness. Full range of motion. Skin: Warm, dry with normal turgor. Normal color with no rashes, no lesions, and no evidence of cellulitis. MS/ Extremity: Pulses equal, no cyanosis. Neurovascular intact. Full, normal range of motion. Neuro: Awake and alert, GCS 15, oriented to person, place, time, and situation. Cranial nerves II-XII grossly intact. Motor strength 5/5 in all extremities. Sensory grossly intact. Cerebellar exam normal. Normal gait. 06:13 Respiratory: mild respiratory distress is noted, Respirations: normal, Breath sounds: wheezing: Vital Signs: 03:02 BP 141 / 94; Pulse 124; Resp 26; Temp 97.8(O); Pulse Ox 90% on R/A; Weight 54.43 kg; mg2 Height 5 ft. 7 in. (170.18 cm); 04:40 BP 131 / 70; Pulse 110; Resp 20; Pulse Ox 98% on 3 lpm NC; rr5 05:30 BP 163 / 90; Pulse 125; Resp 23; Pulse Ox 88% on R/A; mg2 06:56 BP 111 / 74; Pulse 110; Resp 15; Pulse Ox 94% on 3 lpm NC; rr5 03:02 Body Mass Index 18.79 (54.43 kg, 170.18 cm) mg2 MDM: 03:06 Patient medically screened. tw4 06:23 Differential diagnosis: Anemia asthma, CHF exacerbation, Pneumothorax pulmonary edema, tw4 Pulmonary Embolism. Data reviewed: vital signs, nurses notes. Counseling: I had a detailed discussion with the patient and/or guardian regarding: the historical points, exam findings, and any diagnostic results supporting the discharge/admit diagnosis, lab results, radiology results. Physician consultation: Blayne Judd regarding admission, patient's condition, and will see patient in ED. 07/19 02:54 Order name: Strep tw4 07/19 03:09 Order name: Blood Culture Adult (2) tw4 07/19 03:09 Order name: BMP tw4 07/19 03:09 Order name: CBC with Diff tw4 07/19 03:09 Order name: Ckmb tw4 07/19 03:09 Order name: CPK tw4 07/19 03:09 Order name: D-Dimer tw4 07/19 03:09 Order name: Hepatic Function tw4 07/19 03:09 Order name: Lipase tw4 07/19 03:09 Order name: Magnesium tw4 07/19 03:09 Order name: NT PRO-BNP tw4 07/19 03:09 Order name: PT-INR tw4 07/19 02:54 Order name: CXR XRAY tw4 07/19 03:09 Order name: Ptt, Activated tw4 07/19 03:09 Order name: Troponin (emerg Dept Use Only) tw4 07/19 03:09 Order name: EKG; Complete Time: 03:11 4 07/19 03:10 Order name: Blood Culture EDMS 07/19 03:10 Order name: Basic Metabolic Panel EDMS 07/19 03:31 Order name: Throat Culture EDMS 07/19 04:02 Order name: Manual Differential EDMS 07/19 04:04 Order name: COVID-19/FLU A+B EDMS 07/19 05:36 Order name: UDS 4 07/19 05:56 Order name: Urine Dipstick--Ancillary (enter results) 2 07/19 05:56 Order name: Urine --Ancillary (enter results) 2 07/19 07:16 Order name: Urine Microscopic Only 5 07/19 02:54 Order name: Droplet/Contact Precautions; Complete Time: 03:01 tw4 07/19 02:54 Order name: Labs collected and sent; Complete Time: 03:01 tw4 07/19 02:54 Order name: O2 Per Protocol; Complete Time: 03:01 tw4 07/19 03:09 Order name: Cardiac monitoring; Complete Time: 03:42 tw4 07/19 03:09 Order name: EKG - Nurse/Tech; Complete Time: 04:40 tw4 07/19 03:09 Order name: IV Saline Lock; Complete Time: 03:42 tw4 07/19 03:09 Order name: Labs collected and sent; Complete Time: 03:42 tw4 07/19 03:09 Order name: O2 Sat Monitoring; Complete Time: :42 tw4 EC:22 Rate is 110 beats/min. Rhythm is regular. QRS Lottie is Normal. OR interval is normal. tw4 QRS interval is normal. QT interval is normal. No Q waves. T waves are Normal. No ST changes noted. Clinical impression: Sinus tachycardia. Interpreted by me. Reviewed by me. Administered Medications: 04:38 Drug: DuoNeb (3:1) (2.5 mg - 0.5 mg) 3 ml Route: Nebulizer; rr5 05:35 Follow up: Response: No adverse reaction mg2 05:35 Drug: NS 0.9% 1000 ml Route: IV; Rate: 1000 ml; Site: right antecubital; mg2 06:40 Follow up: Response: No adverse reaction; IV Status: Completed infusion; IV Intake: rr5 1000ml 05:37 Drug: Albuterol 1.25 mg Route: Inhalation; mg2 Disposition: 07/19/20 06:21 Hospitalization ordered by Blayne Judd for Inpatient Admission. Preliminary diagnosis are Moderate persistent asthma with (acute) exacerbation, Hypoxemia. - Bed requested for Telemetry/MedSurg (Inpatient). - Status is Inpatient Admission. aa5 - Condition is Stable. - Problem is new. - Symptoms have improved. Signatures: Dispatcher [employer] EDMS Carolina Castanon Martha, RN RN mw Woody, Diana, RN RN Evon Bro RN RN aa5 Dwight Dela Cruz MD MD tw4 Chacorta Johnson RN RN mg2 Armin Anderson, SATISH RN rr5 Corrections: (The following items were deleted from the chart) 03:01 02:54 Document PUI# ordered. tw4 rr5 03:01 02:54 [facility] [phone]/ ordered. tw4 rr5 03:19 02:55 CORONAVIRUS+MR.LAB.BRZ ordered. EDMS EDMS 03:19 02:55 Influenza Screen (A \T\ B)+BA.LAB.BRZ ordered. EDAL EDMS 06:35 06:21 Hospitalization Ordered by Blayne Judd for Inpatient Admission. Preliminary mw diagnosis is Moderate persistent asthma with (acute) exacerbation; Hypoxemia. Bed requested for Telemetry/MedSurg (Inpatient). Status is Inpatient Admission. Condition is Stable. Problem is new. Symptoms have improved. tw4 15:00 06:35 07/19/2020 06:21 Hospitalization Ordered by Blayne Judd for Inpatient dw Admission. Preliminary diagnosis is Moderate persistent asthma with (acute) exacerbation; Hypoxemia. Bed requested for [facility] ER HOLD. Status is Inpatient Admission. Condition is Stable. Problem is new. Symptoms have improved. mw 16:07 15:00 07/19/2020 06:21 Hospitalization Ordered by Blayne Judd for Inpatient bd Admission. Preliminary diagnosis is Moderate persistent asthma with (acute) exacerbation; Hypoxemia. Bed requested for Telemetry/MedSurg (Inpatient). Status is Inpatient Admission. Condition is Stable. Problem is new. Symptoms have improved. dw 16:09 16:07 07/19/2020 06:21 Hospitalization Ordered by Blayne Judd for Inpatient aa5 Admission. Preliminary diagnosis is Moderate persistent asthma with (acute) exacerbation; Hypoxemia. Bed requested for Telemetry/MedSurg (Inpatient). Status is Inpatient Admission. Condition is Stable. Problem is new. Symptoms have improved. bd
--- NOTE | 2020-07-19 19:20 | P.DS ---
Admission Date: 07/19/20 Discharge Date: 07/19/20 Disposition: AMA-LEFT AGAINST MEDICAL ADVIC Reason for Admission: Shortness of breath - Problems (1) Bipolar disorder Status: Acute (2) Polysubstance abuse Status: Acute Brief History of Present Illness: 20-year-old woman with a history of asthma and bipolar disorder presented to the emergency department with a complaint of progressive shortness of breath and wheezing. Chest x-ray done in the emergency department was clear with no acute infiltrate. Patient was given nebulizer treatment with partially improvement. She was requiring oxygen to maintain oxygen saturation above 90%. She had mild leukocytosis and urine toxicology screen is positive for amphetamine and opiate. Patient was admitted for further management of acute asthma exacerbation with hypoxia. Hospital Course: Patient admitted to the medical floor and given a dose of IV Solu-Medrol and placed on scheduled nebulizers. She was also given a dose of IV magnesium for the asthma exacerbation. I just now realize patient signed out against medical advice at 1555 hours. Vital Signs/Physical Exam: Temp Pulse Resp BP Pulse Ox 98.1 F 107 H 12 121/67 93 07/19/20 13:33 07/19/20 13:33 07/19/20 13:33 07/19/20 13:33 07/19/20 13:33 Laboratory Data at Discharge: WBC 13.2 K/uL (4.3-10.9) H 07/19/20 03:35 Hgb 13.4 g/dL (12.0-15.0) 07/19/20 03:35 Hct 41.5 % (36.0-45.0) 07/19/20 03:35 Plt Count 491 K/uL (152-406) H 07/19/20 03:35 PT 11.6 SECONDS (9.5-12.5) 07/19/20 03:35 INR 0.98 07/19/20 03:35 APTT 31.7 SECONDS (24.3-36.9) 07/19/20 03:35 Sodium 137 mmol/L (136-145) 07/19/20 03:35 Potassium 3.9 mmol/L (3.5-5.1) 07/19/20 03:35 BUN 10 mg/dL (7-18) 07/19/20 03:35 Creatinine 0.59 mg/dL (0.55-1.3) 07/19/20 03:35 Glucose 122 mg/dL (74-106) H 07/19/20 03:35 Magnesium 1.8 mg/dL (1.8-2.4) 07/19/20 03:35 Total Bilirubin 0.7 mg/dL (0.2-1.0) 07/19/20 03:35 AST 15 U/L (15-37) 07/19/20 03:35 ALT 15 U/L (12-78) 07/19/20 03:35 Alkaline Phosphatase 120 U/L (45-117) H 07/19/20 03:35 Lipase 47 U/L (73-393) L 07/19/20 03:35 Home Medications: Albuterol Inhaler [Ventolin Inhaler*] 2 puff IH QID PRN #1 hfa.aer.[email or web address] 10/16/19 Followup: NONE,NONE [Primary Care Provider] -
== END 2020-07-19 15:55 | disposition left against medical advice (07) | DRG 203 ==
LOC: ER 02:41 → ERHOLD 07:37 → OBSVTOIN 08:22
PROVIDERS: ADMIT Internal Medicine; ATTEND Internal Medicine
DX: J45.41 Moderate persistent asthma with (acute) exacerbation (principal); F31.9 Bipolar disorder, unspecified; F19.10 Other psychoactive substance abuse, uncomplicated; D72.829 Elevated white blood cell count, unspecified; Z87.891 Personal history of nicotine dependence; Z79.899 Other long term (current) drug therapy; Z20.822 Contact with and (suspected) exposure to COVID-19
CPT/HCPCS: 0240U; 36415; 71045; 80048; 80076; 80307; 81003; 81025; 82550; 82553; 83690; 83735; 83880; 84484; 85025; 85379; 85610; 85730; 87040; 87070; 87081; 93005; 94640; 96360; 99285; G0378; J1650; J2930; J3475; J7030

== ENCOUNTER 2020-09-09 17:30 | Inpatient (IN) | payer SELFPAY ==
--- OUTSIDE RECORDS SUMMARY | 2020-09-09 17:32 | XMS REPORT | Continuity of Care Document ---
:2000 Author Organization [facility] t Address [address] [place] [place] [address] Care Team Providers Name Role Phone Pb Byers MD Attending Clinician Brandy Barnett MD Attending Clinician Etelvina MADSEN Attending Clinician Ernesto MADSEN Attending Clinician Etelvina MADSEN Admitting Clinician Problems This patient has no known problems. Allergies, Adverse Reactions, Alerts This patient has no known allergies or adverse reactions. Medications This patient has no known medications. Procedures This patient has no known procedures. Encounters Start End Encounter Admission Attending Care Care Encounter Source Date/Time Date/Time Type Type Clinicians Facility Department ID 2020-08-19 2020-08-22 [facility] Nara Byers [id number] 18:56:00 20:59:00 Encounter Brian Barnett [id number] [facility] [id number] Alen Orozco [id number] Results This patient has no known results.
[2020-09-09] MEDS ORDERED: METHYLPREDNISOLONE 125 MG INJ ONE (18:01)
[2020-09-09] MEDS ORDERED: IPRATROPIUM BROM 0.5MG/2.5ML ONE ×2 (18:01→20:01)
[2020-09-09] MEDS ORDERED: MAGNESIUM SULFATE 1 gm IVPB 1 GM/100 ML BAG IV ONE (18:02)
[2020-09-09] MEDS ORDERED: LEVALBUTEROL 1.25 MG/3 ML NEB ONE (18:02)
[2020-09-09 18:28] LABS: Protime INR 1.06
[2020-09-09] MEDS ORDERED: CEFTRIAXONE/SWI 1gm 1 GM/10 ML SYR ONE (18:30)
[2020-09-09 18:32] LABS: Absolute Lymphocytes (CBC) 1.4 K/uL (0.7-4.9); Basophils % 0.6 % (0-1.3); Hematocrit 37.7 % (36.0-45.0); Lymphocytes % 10.4 % (15.3-44.8); MPV 8.7 fL (7.6-11.3); RBC Red Blood Cell Count 4.61 M/uL (3.86-4.86)
[2020-09-09 18:42] LABS: ALT/SGPT 18 U/L (12-78); AST/SGOT 14 U/L (15-37); Albumin 3.2 g/dL (3.4-5.0); Alkaline Phosphatase 109 U/L (45-117); BUN Blood Urea Nitrogen 8 mg/dL (7-18); Bicarbonate 31 mmol/L (21-32); Bilirubin Direct 0.1 mg/dL (0-0.2); Bilirubin Total 0.5 mg/dL (0.2-1.0); Glucose Level 118 mg/dL (74-106); Potassium 3.9 mmol/L (3.5-5.1); Protein, Total 7.8 g/dL (6.4-8.2); Sodium Level 139 mmol/L (136-145); Troponin (Emerg Dept Use Only) < 0.02 ng/mL (0.0-0.045)
[2020-09-09 19:38] LABS: Blood Morphology Comment NOT SEEN (NOT SEEN); Platelet Estimate ADEQ; White Blood Cell Scan OK (OK)
[2020-09-09 19:46] LABS: SARS-COV-2 RT PCR NEGATIVE (NEGATIVE)
[2020-09-09] MEDS ORDERED: ALBUTEROL 2.5 MG/3 ML NEB SOL ONE (20:01)
[2020-09-09] MEDS ORDERED: NA CHLORIDE 0.9% 1,000 ML ONE ×2 (20:58→22:26)
--- NOTE | 2020-09-09 21:16 | RAD REPORT ---
EXAM DESCRIPTION: Aurelia Single View09/09/2020 9:08 pm CLINICAL HISTORY: Shortness of breath COMPARISON: July 2020 FINDINGS: No significant change in small left upper lobe opacity. Main lungs appear clear. Heart is normal size
--- NOTE | 2020-09-09 21:44 | EDPHYS ---
Physician Documentation [facility] Name: Taylor Rick Age: 20 yrs Sex: Female : 2000 Arrival Date: 09/09/2020 Time: 17:30 Bed 2 Private MD: ED Physician Jim Mccormick HPI: 09/09 17:40 This 20 yrs old Female presents to ER via Wheelchair with complaints of jmm Breathing Difficulty. 17:40 The patient has shortness of breath at rest. Onset: The symptoms/episode began/occurred jmm gradually, 4 day(s) ago. Duration: The symptoms are continuous. The patient's shortness of breath is aggravated by nothing, is alleviated by nothing. Associated signs and symptoms: Pertinent negatives: fever, hemoptysis. This is a 20 year old female with a history of depression, bipolar, asthma, that presents to the ED with complaints of shortness of breath she attributes to asthma. . 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 - Social history:: Smoking status: Patient/guardian denies using alcohol, street drugs. ROS: 17:40 Constitutional: Negative for fever, chills, and weight loss, Cardiovascular: Negative jmm for chest pain, palpitations, and edema. 17:40 Respiratory: Positive for shortness of breath. 17:40 All other systems are negative. Exam: 17:40 Head/Face: atraumatic. Eyes: EOMI, no conjunctival erythema appreciated ENT: Moist jmm Mucus Membranes Neck: Trachea midline, Supple Chest/axilla: Normal chest wall appearance and motion. 17:40 Abdomen/GI: Non distended, soft Back: Normal ROM Skin: General appearance color normal MS/ Extremity: Moves all extremities, no obvious deformities appreciated, no edema noted to the lower extremities Neuro: Awake and alert, normal gait Psych: Behavior is normal, Mood is normal, Patient is cooperative and pleasant 17:40 Constitutional: The patient appears alert, anxious, in obvious distress, uncomfortable. 17:40 Cardiovascular: Rate: tachycardic. 17:40 Respiratory: moderate respiratory distress is noted, Respirations: labored breathing, that is moderate, Breath sounds: wheezing: that is severe, is heard diffusely. Vital Signs: 17:36 BP 107 / 75; Pulse 138; Resp 28; Pulse Ox 82% on R/A; tw2 18:15 BP 136 / 89; Pulse 125; Resp 15; Pulse Ox 97% ; sv 21:03 BP 121 / 67; Pulse 111; Resp 19; Pulse Ox 96% ; ea 21:03 Temp 99.0; ea 22:40 BP 124 / 82; Pulse 107; Resp 18; Pulse Ox 98% ; ea 23:23 BP 115 / 70; Pulse 103; Resp 17; Pulse Ox 96% on 2 lpm NC; rr5 17:36 pt placed on o2 via nc at 4L at this time, o2 up to 93%, provider and charge nurse tw2 notified MDM: 17:40 Patient medically screened. [facility] 21:42 Data reviewed: vital signs, nurses notes. Counseling: I had a detailed discussion with maria c the patient and/or guardian regarding: the historical points, exam findings, and any diagnostic results supporting the discharge/admit diagnosis, lab results, radiology results, the need for outpatient follow up, the need for further work-up and treatment in the hospital. ED course: I discussed the patient with Artur Vallejo whom accepted the patient to Dr. Judd's service. 09/09 17:42 Order name: Acetaminophen [facility] 09/09 17:42 Order name: Basic Metabolic Panel [facility] 09/09 17:42 Order name: CBC with Diff [facility] 09/09 17:42 Order name: ETOH Level [facility] 09/09 17:42 Order name: Hepatic Function [facility] 09/09 17:42 Order name: PT-INR [facility] 09/09 17:42 Order name: Ptt, Activated [facility] 09/09 17:42 Order name: Salicylate; Complete Time: 18:56 [facility] 09/09 17:42 Order name: Urine Drug Screen [facility] 09/09 17:42 Order name: Blood Culture Adult (2) [facility] 09/09 17:42 Order name: Procalcitonin; Complete Time: 19:14 [facility] 09/09 17:42 Order name: Lactate; Complete Time: 18:26 [facility] 09/09 17:42 Order name: Troponin (emerg Dept Use Only); Complete Time: 18:44 [facility] 09/09 17:43 Order name: Acetaminophen Level; Complete Time: 18:44 [facility] 09/09 17:43 Order name: Basic Metabolic Panel; Complete Time: 18:44 [facility] 09/09 17:43 Order name: CBC with Automated Diff; Complete Time: 19:38 [facility] 09/09 17:43 Order name: Alcohol Serum/Plasma; Complete Time: 18:44 [facility] 09/09 17:43 Order name: Liver (Hepatic) Function; Complete Time: 18:44 [facility] 09/09 17:43 Order name: Protime (+INR); Complete Time: 18:44 [facility] 09/09 17:43 Order name: PTT, Activated Partial Thromb; Complete Time: 18:44 [facility] 09/09 17:46 Order name: COVID-19 : Document "Date of Symptom Onset" if Symptomatic. [facility] 09/09 17:46 Order name: Flu [facility] 09/09 19:34 Order name: Chest Single View XRAY; Complete Time: 21:19 [facility] 09/09 19:37 Order name: CBC Smear Scan; Complete Time: 19:38 [facility] 09/09 19:46 Order name: COVID-19/FLU A+B; Complete Time: 19:49 [facility] 09/09 17:42 Order name: EKG; Complete Time: 17:43 [facility] 09/09 17:42 Order name: EKG - Nurse/Tech; Complete Time: 18:34 [facility] 09/09 17:42 Order name: IV Saline Lock; Complete Time: 18:11 [facility] 09/09 17:42 Order name: Labs collected and sent; Complete Time: 18:11 [facility] Administered Medications: 18:07 Drug: SOLU-Medrol 125 mg Route: IVP; Site: left antecubital; sv 18:34 Follow up: Response: No adverse reaction sv 18:09 Drug: Magnesium Sulfate 1 grams Route: IVPB; Infused Over: 1 hrs; Site: left sv antecubital; 19:00 Follow up: Response: No adverse reaction; IV Status: Completed infusion; IV Intake: sv 100ml 18:09 Drug: Xopenex 1.25 mg Route: Inhalation; sv 18:09 Drug: AtroVENT Aerosol 0.5 mg Route: Inhalation; sv 18:33 Drug: Rocephin - (cefTRIAXone) 1 grams Route: IVPB; Infused Over: 30 mins; Site: left sv antecubital; 18:35 Follow up: Response: No adverse reaction; IV Status: Completed infusion; IV Intake: sv 10ml ; given IVP as per pharmacy 20:23 Drug: DuoNeb (3:1) (2.5 mg - 0.5 mg) 3 ml Route: Nebulizer; rr5 22:45 Follow up: Response: No adverse reaction ea 20:49 Drug: NS 0.9% 1000 ml Route: IV; Rate: 1 bolus; Site: left antecubital; ea 22:46 Follow up: Response: No adverse reaction; IV Status: Completed infusion; IV Intake: ea 1000ml 22:11 Drug: NS 0.9% 1000 ml Route: IV; Rate: 1 bolus; Site: left antecubital; ea 23:24 Follow up: Response: No adverse reaction; IV Status: Infusion continued upon admission rr5 Disposition: 09/09/20 21:44 Hospitalization ordered by Valerie Castellano for Inpatient Admission. Preliminary diagnosis is Moderate persistent asthma with (acute) exacerbation. - Bed requested for Telemetry/MedSurg (Inpatient). - Status is Inpatient Admission. rr5 - Condition is Stable. - Problem is an acute exacerbation. - Symptoms have improved. Addendum: 09/13/2020 05:57 Co-signature as Attending Physician, Jim Mccormick MD I agree with the assessment and k dr plan of care. Signatures: Dispatcher [employer] EDMS Talya Farris RN RN sv Woody, Diana, RN RN dw Rittger, Kevin, MD MD kdr Mickail, Joel, PA PA jmm Roszak, Josh, PA PA jr8 Clarissa Hardin RN RN tw2 Jodi Taylor RN RN ea Roque, Raymond, RN RN rr5 Corrections: (The following items were deleted from the chart) 09/09 18:40 17:47 Influenza Screen (A ordered. EDMS EDMS 18:41 17:47 CORONAVIRUS ordered. EDNY EDMS :25 21:44 Hospitalization Ordered by Valerie Castellano MD for Inpatient Admission. Preliminary dw diagnosis is Moderate persistent asthma with (acute) exacerbation. Bed requested for Telemetry/MedSurg (Inpatient). Status is Inpatient Admission. Condition is Stable. Problem is an acute exacerbation. Symptoms have improved. ashley 23:24 22:25 09/09/2020 21:44 Hospitalization Ordered by Valerie Castellano MD for Inpatient rr5 Admission. Preliminary diagnosis is Moderate persistent asthma with (acute) exacerbation. Bed requested for Telemetry/MedSurg (Inpatient). Status is Inpatient Admission. Condition is Stable. Problem is an acute exacerbation. Symptoms have improved. dw
--- NOTE | 2020-09-09 21:44 | ER ---
Nurse's Notes [facility] Name: Taylor Rick Age: 20 yrs Sex: Female : 2000 Arrival Date: 09/09/2020 Time: 17:30 Bed 2 Private MD: Diagnosis: Moderate persistent asthma with (acute) exacerbation Presentation: 09/09 17:36 Chief complaint: Patient states: i feel short of breath, latanya been sick for a few days. tw2 Coronavirus screen: difficulty breathing, shortness of breath, Client presents with at least one sign or symptom that may indicate coronavirus-19. Standard/surgical mask placed on the client. Provider contacted for isolation considerations. Ebola Screen: Patient denies travel to an Ebola-affected area in the 21 days before illness onset. Initial Sepsis Screen: Does the patient meet any 2 criteria? RR > 20 per min. HR > 90 bpm. Does the patient have a suspected source of infection? Yes: Productive cough/pneumonia. Risk Assessment: Do you want to hurt yourself or someone else? Patient reports no desire to harm self or others. Note pt brought to exam room at this time, provider at bedside as well as charge nurse and er exam room nurse. Onset of symptoms was September 09, 2020. 17:36 Method Of Arrival: Wheelchair tw2 17:36 Acuity: GABRIELLA 1 tw2 Triage Assessment: 17:36 General: Appears unkempt, Behavior is drowsy. Pain: Denies pain. Respiratory: Reports tw2 shortness of breath at rest on exertion audible wheezing noted Onset: The symptoms/episode began/occurred 2-3 days, the patient has severe shortness of breath. OVEN DAUBER: 17:42 LMP N/A - tw2 Historical: - Allergies: 17:41 No Known Allergies; tw2 - Home Meds: 17:41 Ventolin HFA 90 mcg/actuation Nebulizer HFAA every 4-6 hours for Acute Asthma Attack tw2 [Active]; - PMHx: 17:41 Depression; Bipolar disorder; Asthma; Anxiety; tw2 - PSHx: 17:41 None; tw2 - Immunization history:: Adult Immunizations. - Social history:: Smoking status: Patient/guardian denies using alcohol, street drugs. Screenin:42 Abuse screen: Denies threats or abuse. Nutritional screening: No deficits noted. tw2 Tuberculosis screening: No symptoms or risk factors identified. Fall Risk None identified. Assessment: 17:40 General: Appears distressed, comfortable, slender, malnourished, Behavior is sv cooperative, drowsy. Pain: Denies pain. Neuro: Level of Consciousness is obeys commands, lethargic, Pt able to answer questions appropriately. Oriented to person, place, time, situation, Moves all extremities. Full function. Cardiovascular: Patient's skin is warm and dry. Rhythm is sinus tachycardia. Respiratory: Airway is patent Respiratory effort is labored, Respiratory pattern is symmetrical, tachypnea Breath sounds with wheezes bilaterally. Derm: Skin is normal. Musculoskeletal: Range of motion: intact in all extremities. 18:07 Reassessment: Patient appears in no apparent distress at this time. No changes from sv previously documented assessment. Patient and/or family updated on plan of care and expected duration. Pain level reassessed. 18:20 Reassessment: [facility] attempted to get a urine sample from the pt. Pt refused a sv straight cath and didn't want to use the bedpan at this time because she didn't have to go. 18:33 Reassessment: Patient appears in no apparent distress at this time. No changes from sv previously documented assessment. Pt remains to be drowsy. 19:30 General: Appears slender, Behavior is drowsy. Pain: Denies pain. Neuro: Level of ea Consciousness is obeys commands, lethargic, Oriented to person, place, time, situation. Cardiovascular: Patient's skin is warm and dry. Respiratory: Airway is patent Respiratory effort is labored, Respiratory pattern is symmetrical, tachypnea. Derm: Skin is clammy, Skin is pale, Skin temperature is warm. Musculoskeletal: Circulation, motion, and sensation intact. 21:01 Reassessment: Patient and/or family updated on plan of care and expected duration. Pain ea level reassessed. Resting with eyes closed, respirations remain tachypneic. Vital Signs: 17:36 BP 107 / 75; Pulse 138; Resp 28; Pulse Ox 82% on R/A; tw2 18:15 BP 136 / 89; Pulse 125; Resp 15; Pulse Ox 97% ; sv 21:03 BP 121 / 67; Pulse 111; Resp 19; Pulse Ox 96% ; ea 21:03 Temp 99.0; ea 22:40 BP 124 / 82; Pulse 107; Resp 18; Pulse Ox 98% ; ea 23:23 BP 115 / 70; Pulse 103; Resp 17; Pulse Ox 96% on 2 lpm NC; rr5 17:36 pt placed on o2 via nc at 4L at this time, o2 up to 93%, provider and charge nurse tw2 notified ED Course: 17:30 Patient arrived in ED. am2 17:36 Dariusz Reynoso PA is PHCP. jmm 17:36 Jim Mccormick MD is Attending Physician. jmm 17:36 Placed in gown. Bed in low position. Side rails up X2. color television console monitor on. Pulse ox on. tw2 NIBP on. 17:40 Triage completed. tw2 17:42 Arm band placed on. tw2 18:04 COVID-19 : Document "Date of Symptom Onset" if Symptomatic. Sent. mh5 18:04 Flu Sent. mh5 18:04 COVID swab sent to lab. Flu and/or RSV swab sent to lab. mh5 18:08 Talya Farris, RN is Primary Nurse. sv 18:11 Acetaminophen Sent. sv 18:11 Basic Metabolic Panel Sent. sv 18:11 CBC with Diff Sent. sv 18:11 ETOH Level Sent. sv 18:11 Hepatic Function Sent. sv 18:11 PT-INR Sent. sv 18:11 Ptt, Activated Sent. sv 19:20 Report given to Jodi COVARRUBIAS and Armin COVARRUBIAS. sv 20:01 Primary Nurse role handed off by Talya Farris RN sv 20:23 Armin Anderson RN is Primary Nurse. rr5 21:08 Chest Single View XRAY In Process Unspecified. EDMS 21:43 Valerie Castellano MD is Hospitalizing Provider. jmm 22:40 No provider procedures requiring assistance completed. Patient admitted, IV remains in ea place. Administered Medications: 18:07 Drug: SOLU-Medrol 125 mg Route: IVP; Site: left antecubital; sv 18:34 Follow up: Response: No adverse reaction sv 18:09 Drug: Magnesium Sulfate 1 grams Route: IVPB; Infused Over: 1 hrs; Site: left sv antecubital; 19:00 Follow up: Response: No adverse reaction; IV Status: Completed infusion; IV Intake: sv 100ml 18:09 Drug: Xopenex 1.25 mg Route: Inhalation; sv 18:09 Drug: AtroVENT Aerosol 0.5 mg Route: Inhalation; sv 18:33 Drug: Rocephin - (cefTRIAXone) 1 grams Route: IVPB; Infused Over: 30 mins; Site: left sv antecubital; 18:35 Follow up: Response: No adverse reaction; IV Status: Completed infusion; IV Intake: sv 10ml ; given IVP as per pharmacy 20:23 Drug: DuoNeb (3:1) (2.5 mg - 0.5 mg) 3 ml Route: Nebulizer; rr5 22:45 Follow up: Response: No adverse reaction ea 20:49 Drug: NS 0.9% 1000 ml Route: IV; Rate: 1 bolus; Site: left antecubital; ea 22:46 Follow up: Response: No adverse reaction; IV Status: Completed infusion; IV Intake: ea 1000ml 22:11 Drug: NS 0.9% 1000 ml Route: IV; Rate: 1 bolus; Site: left antecubital; ea 23:24 Follow up: Response: No adverse reaction; IV Status: Infusion continued upon admission rr5 Intake: 18:35 IV: 10ml; Total: 10ml. sv 19:00 IV: 100ml; Total: 110ml. sv 22:46 IV: 1000ml; Total: 1110ml. ea Outcome: 21:44 Decision to Hospitalize by Provider. [facility] 22:40 Instructed on the need for admit. ea 23:22 Admitted to Tele accompanied by nurse, via stretcher, room 421, with oxygen, with rr5 chart, Report called to 23:22 Condition: stable 23:24 Patient left the ED. rr5 Signatures: Dispatcher [employer] EDMS Talya Farris, RN RN Dariusz Hollis PA PA Clarissa Morel RN RN Evelyn Kendrick Catia Power Elena, RN RN ea Roque, Raymond, RN RN rr5 Corrections: (The following items were deleted from the chart) 18:40 18:04 Influenza Screen (A drawn and sent. [facility] EDMS 18:41 18:04 CORONAVIRUS drawn and sent. [facility] EDMS
[2020-09-10] MEDS ORDERED: ALBUTEROL 2.5 MG/3 ML NEB SOL NEB PRN (00:05)
[2020-09-10] MEDS ORDERED: ONDANSETRON 4 MG/2 ML VIAL IV PRN (00:05)
[2020-09-10] MEDS ORDERED: IPRATROPIUM BROM 0.5MG/2.5ML NEB PRN (00:05)
[2020-09-10] MEDS ORDERED: NA CHLORIDE 0.9% 1,000 ML IV SCH (00:05)
[2020-09-10] MEDS: METHYLPREDNISOLONE 40 MG INJ IV SCH ×2 (00:29→09:07)
[2020-09-10 03:12] VITALS: BMI 20.9
--- NOTE | 2020-09-10 03:33 | P.HP ---
Certification for Inpatient Patient admitted to: Observation With expected LOS: <2 Midnights Patient will require the following post-hospital care: None Practitioner: I am a practitioner with admitting privileges, knowledge of patient current condition, hospital course, and medical plan of care. Services: Services provided to patient in accordance with Admission requirements found in Title 42 Section 412.3 of the Code of Federal Regulations <Dewayne Vallejo - Last Filed: 09/10/20 03:27> Patient History Date of Service: 09/10/20 Primary Care Provider: None Reason for admission: Asthma Exacerbation, Hypoxia History of Present Illness: This is a 20-year-old female that presented to the emergency room with 4 day onset of shortness of breath that markedly became worse today. Patient has a medical history of depression, bipolar disorder, asthma, anxiety. Currently takes Ventolin HFA puffer at home with nebulizer as needed every 4-6 hr. Patient upon arrival to emergency room had an oxygen saturation of 82% on room air with diffuse inspiratory and expiratory wheezing. Patient was described as somnolent as well. Patient worked up in the emergency room including tox panel. Patient had stable pulmonary findings. Patient had a sodium of 139, potassium 3.9, chloride 103, bicarb 1, BUN 8, creatinine 0.47, glucose 118. Patient had mild elevated white cell count of 13.7 with a hemoglobin of 12.6, hematocrit 37.7 and platelets 311. Patient had ETOH level of 11 and still pending urine drug screen. Patient was treated with steroids, magnesium, multiple breathing treatments in the emergency room with mild improvement. Upon examination by myself. Patient still seemed very sleepy. But was breathing better. Patient did still have expiratory wheezing upon auscultation but with oxygen via nasal cannula was at 96%. Patient admitted for observation at that time. Home medications list reviewed: Yes - Past Medical/Surgical History Has patient received pneumonia vaccine in the past: No Diabetic: No -: Anxiety -: Depression -: Bipolar disorder -: Asthma -: tobacco abuse -: drug abuse - Family History Family History: Reviewed- Non-Contributory - Family History Father -: Diabetes Mother -: Hypertension, Cancer Notes: Colon and breast Cancer - Social History Smoking Status: Never smoker Smoking therapy provided: No Alcohol use: Yes CD- Drugs: No Caffeine use: No Place of Residence: Home <Dewayne Vallejo - Last Filed: 09/10/20 03:27> Date of Service: 09/10/20 <CastellanoSushil lancejon Mila - Last Filed: 09/28/20 00:06> Allergies No Known Allergies Allergy (Verified 09/10/20 03:10) Home Medications: Albuterol Inhaler [Ventolin Inhaler*] 2 puff IH QID PRN #1 hfa.aer.ad 10/16/19 predniSONE [Prednisone*] 20 mg PO BID #20 tab 09/10/20 Review of Systems General: As per HPI Eyes: Unremarkable ENT: Unremarkable Respiratory: Cough, Shortness of Breath, SOB with Excertion Cardiovascular: Unremarkable Gastrointestinal: Unremarkable Genitourinary: Unremarkable Musculoskeletal: Unremarkable Integumentary: Unremarkable Neurological: As per HPI Lymphatics: Unremarkable <Maggi Vallejoshua - Last Filed: 09/10/20 03:27> Physical Examination - Vital Signs Temperature: 96.9 F Blood Pressure: 106/54 Pulse: 99 Respirations: 17 Pulse Ox (%): 93 - Physical Exam General: Oriented x3, Cooperative, Mild distress, Other (Sleepy) HEENT: PERRLA, Mucous membr. moist/pink, EOMI Neck: Supple, 2+ carotid pulse no bruit, JVD not distended, No Thyromegaly Respiratory: Expiratory wheezes Cardiovascular: No edema, Normal S1 S2, No gallops, No rubs, No murmurs, Irregular heart rate/rhythm (Tachycardia) Capillary refill: <2 Seconds Gastrointestinal: Normal bowel sounds, Soft and benign, Non-distended, No ascites, No tenderness, No masses, No rebound, No guarding Musculoskeletal: No clubbing, No swelling, No contractures, No erythema, No tenderness, No warmth Integumentary: No rashes, No breakdown, No significant lesion, No tenderness/swelling, No erythema, No warmth, No cyanosis Neurological: Normal strength at 5/5 x4 extr, Normal tone, Sensation intact, Cranial nerves 3-12 intact, Normal affect, Abnormal speech (Slowed speech) Lymphatics: No axilla or inguinal lymphadenopathy - Studies Laboratory Data (last 24 hrs) 09/09/20 17:55: PT 12.2, INR 1.06, APTT 32.9 09/09/20 17:55: WBC 13.70 H, Hgb 12.6, Hct 37.7, Plt Count 311 09/09/20 17:55: Sodium 139, Potassium 3.9, BUN 8, Creatinine 0.47 L, Glucose 118 H, Total Bilirubin 0.5, AST 14 L, ALT 18, Alkaline Phosphatase 109 <Dewayne Vallejo - Last Filed: 09/10/20 03:27> Assessment and Plan - Problems (Diagnosis) (1) Hypoxia Status: Acute Plan: Patient placed on oxygen therapy will continue steroids and breathing treatments for the next 24 hr. Will escalate oxygen therapy depending on respiratory status and pulse oximetry. (2) Altered mental status Status: Acute Plan: Patient continues to be very sleepy upon examination but can answer questions appropriately. Still pending urine drug screen but patient does have a history of polysubstance abuse in past. Qualifiers: Altered mental status type: somnolence Qualified Code(s): R40.0 - Somnolence (3) Asthma exacerbation Status: Acute Plan: We will continue to monitor patient's breathing status. Patient will be on oxygen therapy for the next 24 hr. Will continue steroid therapy and breathing treatments every 4 hr. Will escalate oxygen therapy as needed depending on pulse oximetry and respiratory status. Qualifiers: Asthma severity: severe Asthma persistence: persistent Qualified Code(s): J45.51 - Severe persistent asthma with (acute) exacerbation - Plan Will check labs in the morning. Discharge Plan: Home Plan to discharge in: 24 Hours - Advance Directives Does patient have a Living Will: No Does patient have a Durable POA for Healthcare: No - Code Status/Comfort Care Code Status Assessed: Yes Code Status: Full Code Critical Care: No Time Spent Managing Pts Care (In Minutes): 70 <Dewayne Vallejo - Last Filed: 09/10/20 03:27> Date of Service: 09/10/20 Patient was evaluated for asthma exacerbation. Patient will be admitted for asthma exacerbation. We will continue with nebs, steroids, and antibiotics. <Valerie Castellano - Last Filed: 09/28/20 00:06> <Dewayne Vallejo - Last Filed: 09/10/20 03:27> Diet: AHA Activity: Fall precautions Time spent managing pt's care (in minutes): 45 <Valerie Castellano - Last Filed: 09/28/20 00:06> Home Medications: Albuterol Inhaler [Ventolin Inhaler*] 2 puff IH QID PRN #1 hfa.aer.ad 10/16/19 predniSONE [Prednisone*] 20 mg PO BID #20 tab 09/10/20
[2020-09-10 04:25] LABS: BUN Blood Urea Nitrogen 7 mg/dL (7-18); Bicarbonate 27 mmol/L (21-32); Glucose Level 217 mg/dL (74-106); Potassium 4.1 mmol/L (3.5-5.1); Sodium Level 138 mmol/L (136-145)
[2020-09-10 04:34] LABS: Barbiturates NEGATIVE (NEGATIVE); Benzodiazepines NEGATIVE (NEGATIVE); Cocaine NEGATIVE (NEGATIVE); METHAMPHETAM POSITIVE (NEGATIVE); Methadone NEGATIVE (NEGATIVE); Opiates POSITIVE (NEGATIVE); Phencyclidine NEGATIVE (NEGATIVE); THC Cannibis NEGATIVE (NEGATIVE)
[2020-09-10 04:38] LABS: Absolute Lymphocytes (CBC) 0.6 K/uL (0.7-4.9); Basophils % 0.1 % (0-1.3); Hematocrit 35.8 % (36.0-45.0); Lymphocytes % 5.5 % (15.3-44.8); MPV 8.8 fL (7.6-11.3); RBC Red Blood Cell Count 4.35 M/uL (3.86-4.86)
[2020-09-10 05:22] LABS: Blood Morphology Comment NOT SEEN (NOT SEEN); Platelet Estimate ADEQ
[2020-09-10] MEDS ORDERED: AZITHROMYCIN IV 500 MG in NA CHLORIDE 0.9% 250 ML IVPB ONE (06:00)
[2020-09-10 08:58] VITALS: O2SAT 90
[2020-09-10] MEDS ORDERED: CEFTRIAXONE 1 GM/NS 50 ML 1 GM/50 ML BAG IV SCH (09:00)
[2020-09-10] MEDS ORDERED: AZITHROMYCIN IV 250 MG in NA CHLORIDE 0.9% 250 ML IVPB SCH (09:00)
[2020-09-10] MEDS ORDERED: CEFTRIAXONE/SWI 1gm 1 GM/10 ML SYR IV SCH (09:00)
[2020-09-10 11:59] VITALS: BP 111/49; TEMP 96.9
--- NOTE | 2020-09-10 14:11 | EKG ---
Test Date: 2020-09-09 Test Time: 18:26:56 Hospital Intern: ISHAAN MEASUREMENT RESULTS: Intervals: Rate: 124 UT: 128 QRSD: 90 QT: 302 QTc: 433 [place]: P: 84 UT: 128 QRS: 85 T: 66 INTERPRETIVE STATEMENTS: Sinus tachycardia Otherwise normal ECG Compared to ECG 07/19/2020 04:39:47 Atrial abnormality no longer present Right-axis deviation no longer present Electronically Signed On 09-10-20 14:09:03 INTENSIVE CARE SPECIALIST by Arnaud Lafleur
[2020-09-11] MEDS ORDERED: AZITHROMYCIN IV 250 MG in NA CHLORIDE 0.9% 250 ML IVPB SCH (09:00)
--- NOTE | 2020-09-28 00:08 | P.DS ---
Discharge Date: 09/10/20 Primary Care Provider: Ramona Disposition: ROUTINE DISCHARGE Discharge Condition: GOOD Reason for Admission: Asthma Exacerbation, Hypoxia Brief History of Present Illness: Patient is a 20-year-old female who came to the hospital with asthma exacerbation. Patient is admitted for nebs, steroids, antibiotics. Hospital Course: Patient was given nebs, steroids, and antibiotics. At this time, patient is stable for discharge. Continue with outpatient treatment of asthma. Vital Signs/Physical Exam: Temp Pulse Resp BP Pulse Ox 96.9 F 111 H 16 111/49 L 93 09/10/20 11:58 09/10/20 11:58 09/10/20 11:58 09/10/20 11:58 09/10/20 11:58 General: Alert, In no apparent distress, Oriented x3 Laboratory Data at Discharge: WBC 11.30 K/uL (4.3-10.9) H D 09/10/20 03:40 Hgb 11.7 g/dL (12.0-15.0) L 09/10/20 03:40 Hct 35.8 % (36.0-45.0) L 09/10/20 03:40 Plt Count 298 K/uL (152-406) 09/10/20 03:40 PT 12.2 SECONDS (9.5-12.5) 09/09/20 17:55 INR 1.06 09/09/20 17:55 APTT 32.9 SECONDS (24.3-36.9) 09/09/20 17:55 Sodium 138 mmol/L (136-145) 09/10/20 03:40 Potassium 4.1 mmol/L (3.5-5.1) 09/10/20 03:40 BUN 7 mg/dL (7-18) 09/10/20 03:40 Creatinine 0.69 mg/dL (0.55-1.3) 09/10/20 03:40 Glucose 217 mg/dL (74-106) H 09/10/20 03:40 Total Bilirubin 0.5 mg/dL (0.2-1.0) 09/09/20 17:55 AST 14 U/L (15-37) L 09/09/20 17:55 ALT 18 U/L (12-78) 09/09/20 17:55 Alkaline Phosphatase 109 U/L (45-117) 09/09/20 17:55 Home Medications: Albuterol Inhaler [Ventolin Inhaler*] 2 puff IH QID PRN #1 hfa.aer.ad 10/16/19 predniSONE [Prednisone*] 20 mg PO BID #20 tab 09/10/20 New Medications: predniSONE [Prednisone*] 20 mg PO BID #20 tab Physician Discharge Instructions: OK TO DC IV AND DC HOME FOLLOW-UP WITH PRIMARY CARE PROVIDER IN 1-2 WEEKS FOLLOW-UP WITH Pulmonary IN 1-2 WEEKS RETURN TO THE ER IF symptoms worsen CALL or TEXT DR. DIAZ AT [phone] IF ANY QUESTIONS REGARDING HOSPITAL STAY. PLEASE CALL THE FLOOR AT [phone] IF ANY MEDICATION OR NURSING QUESTIONS. Refrain from amphetamines as this can worsen COPD Diet: AHA Activity: Fall precautions Followup: NONE,NONE [Primary Care Provider] - Time spent managing pt's care (in minutes): 35
== END 2020-09-10 16:00 | disposition home or self-care (01) | DRG 203 ==
LOC: ER 17:30 → ERHOLD 22:19 → 4TH 23:00 → OBSVTOIN 09-10 13:40
PROVIDERS: ADMIT Hospitalist; ATTEND Hospitalist
DX: J45.51 Severe persistent asthma with (acute) exacerbation (principal); R40.0 Somnolence; Z79.899 Other long term (current) drug therapy; Z20.822 Contact with and (suspected) exposure to COVID-19
CPT/HCPCS: 0240U; 36415; 71045; 80048; 80076; 80307; 80320; 80329; 83605; 84145; 84484; 85025; 85610; 85730; 87040; 93005; 94760; 96361; 96365; 96375; 99291; 99292; G0378; J0456; J0696; J2920; J2930; J3475; J7030; J7050